=== PATIENT | female | born 1975 | race Caucasian/White ===

== ENCOUNTER 2022-12-15 13:50 | Inpatient (IN) | payer BC, SELFPAY ==
[2022-12-15 13:57] VITALS: BP 95/65; PULSE 112; RESP 18; TEMP 36.2; O2SAT 100
[2022-12-15 14:50] LABS: Absolute Lymphocyte Count 2.16 X10^3/uL (0.83-4.51); Absolute Neutrophil Count 9.2 X10^3/uL (2.0-7.7); Basophil# 0.08 X10^3/uL; Basophil% 0.6 % (0-1); Eosinophil# 0.04 X10^3/uL; Eosinophils% 0.3 % (0-5); Hematocrit 44.9 % (37-47); Lymphocyte # 2.16 X10^3/ul (0.83-4.51); Lymphocyte % 17.5 % (19-41); Mean Corp Hgb Conc 33.4 g/dL (32-36); Mean Corpuscular Hgb 30.9 pg (27.0-32.0); Mean Corpuscular Volume 92.6 fL (81-99); Mean Platelet Vol. 11.4 fl (6.2-12.0); Monocyte# 0.79 X10^3/uL; Monocyte% 6.4 % (0-10); NRBC Flagged by Analyzer 0 % (0-5); Neutrophil # 9.18 X10^3/uL (2.7-7.7); Neutrophil % 74.3 % (47-70); Platelet Count 368 K/mm3 (150-450); RBC Distribution Width CV 14.7 % (11.6-14.6); Red Blood Count 4.85 M/mm3 (4.2-5.4); White Blood Count 12.4 K/mm3 (4.4-11.0)
[2022-12-15 14:57] LABS: Internal QC Validated? YES +Cl - CLEAR BKGD; Pregnancy, Serum, hCG Quali. NEGATIVE Negative
[2022-12-15 15:02] LABS: ALB/GLOB Ratio 0.8 RATIO (0.9-2.4); AST(SGOT) 69 U/L (15-37); Alanine Aminotransfer ALT/SGPT 139 U/L (13-56); Albumin, Serum 3.2 g/dL (3.2-5.0); Alkaline Phosphatase 137 U/L (45-117); Anion Gap 9 (5-15); BUN 13 mg/dL (7-18); Calcium,Total 9.4 mg/dL (8.5-10.1); Chloride 105 mmol/L (98-107); Creatinine, Serum 0.86 mg/dL (0.55-1.02); EST Glomerular Filtration Rate 75 mL/min (>60); Est Glom Filt Rate - Afr Amer 90 mL/min (>60); Globulin 4.2 g/dL (2.2-4.2); Glucose 136 mg/dL (74-106); Potassium 4.9 mmol/L (3.5-5.1); Protein, Total 7.4 g/dL (6.4-8.2); Sodium Level 134 mmol/L (136-145)
--- NOTE | 2022-12-15 15:10 | EKG12_ITS ---
Test Reason : NAUSEA Blood Pressure : / mmHG Vent. Rate : 107 BPM Atrial Rate : 107 BPM P-R Int : 138 ms QRS Dur : 080 ms QT Int : 320 ms P-R-T Axes : 028 -31 028 degrees QTc Int : 427 ms Sinus tachycardia Left axis deviation Minimal voltage criteria for LVH, may be normal variant ( R in aVL ) Cannot rule out Anterior infarct , age undetermined Abnormal ECG Confirmed by ANTONIO PAL, RAYMUNDO ([id number]), photography editor AIDE GONZALEZ ([id number]) on 12/21/2022 2:06:13 PM Referred By: Confirmed By:RAYMUNDO ALVAREZ MD
--- NOTE | 2022-12-15 15:11 | US_ITS ---
STUDY: ABDOMINAL ULTRASOUND - RIGHT UPPER QUADRANT REASON FOR VISIT: Female, 47 years old vomiting, elevated LFTs TECHNIQUE: Ultrasound evaluation of the right upper quadrant was performed with real-time and static ribera-scale imaging. TECHNICAL QUALITY: Limited. Examination limited by bowel gas. COMPARISON: None. FINDINGS: Liver: The liver measures 15.3 cm. There is increased echogenicity consistent with fatty infiltration. The bile ducts are within normal limits. There is hepatic color flow. The direction of portal flow is hepatopetal. Within the right liver lobe there is a round anechoic structure measuring 3.7 x 2.8 x 2.1 cm consistent with a liver cyst. Gallbladder: Normal distended gallbladder. The gallbladder wall measures 4.0 mm. There is a negative sonographic Weaver''s sign. There is no pericholecystic fluid. There are multiple echogenic structures within the gallbladder, consistent with multiple gallstones. Multiple echogenic structures along the wall of the gallbladder suggestive of adenomyomatosis. Common Bile Duct (C.B.D.): The common bile duct measures 4.0 mm. Pancreas: Partial obscuration of the head and tail of the pancreas. Otherwise normal size of the visualized head, body and tail of the pancreas. There is normal echogenicity of the visualized pancreas. There is no demonstrated pancreatic mass or cyst in the visualized portion. Right Kidney: Normal size of the right kidney. The right kidney measures 10.7 x 4.9 x 5.1 cm. Normal renal cortex. The right cortex measures 1.6 cm. There is no demonstrated renal mass or cyst. There is no right hydronephrosis. US/Gallbladder IMPRESSION: Multiple gallstones with underlying adenomyomatosis through the gallbladder wall. Thickening of gallbladder wall up to 4 mm. Although Weaver sign is negative, cannot entirely exclude acute cholecystitis. If this represents a clinical concern, recommend follow-up with HIDA scan. Right liver lobe simple cyst measuring 3.8 cm in maximum dimension. Remainder of the right upper quadrant ultrasound unremarkable. Electronically Signed: Shayy Burns MD at 16:44 EDT ,
--- NOTE | 2022-12-15 15:18 | EX.ED.DYSGE1 ---
HPI History of Present Illness Chief Complaint: Nausea/Vomiting Informant: patient Onset/Context/Timing Onset: Weeks Narrative Narrative: Patient presents secondary to nausea and vomiting. Patient was admitted to [facility] in [place] December 07 through for dizziness, syncope, nausea and vomiting. She had a right upper quadrant ultrasound, HIDA scan, CT scan of her abdomen and pelvis which indicated probable chronic cholecystitis. Her LFTs were reportedly elevated. Per their documentation she got better with Reglan, Protonix, and Carafate. She was discharged on these medications but in spite of this has developed nausea and vomiting again and states she cannot even keep this medications down. Denies having fever or chills. She does not have abdominal pain, just nausea. She states that she is only urinating 3 times a day. She is not having any bloody stool. [facility] Medical History (Updated 12/15/22 @ 19:[address] Erasmo Avitia MD) Arthritis Depression Insomnia Restless leg syndrome Allergy/AdvReac Type Severity Reaction Status Date / Time acetaminophen [From Vicodin] Allergy Nausea Verified 12/15/22 13:57 hydrocodone [From Vicodin] Allergy Nausea Verified 12/15/22 13:57 Social History Smoking Status: Never smoker ROS ROS ED Constitutional Constitutional ED: Denies chills or fever(s) Eyes Eyes: Denies discharge from eye(s) ENT ENT ED: Denies discharge from eye(s), rhinorrhea or sore throat Cardiovascular Cardiovascular: Denies chest pain or palpitations Respiratory/Chest Respiratory/Chest: Denies cough or dyspnea Gastrointestinal Gastrointestinal: Reports diarrhea, nausea and vomiting; Denies abdominal pain Genitourinary Genitourinary ED: Denies dysuria Musculoskeletal Musculoskeletal: Denies back pain or extremity pain Integumentary Denies Abrasions or rash Neurologic Neurologic: Reports weakness; Denies headache(s) Psychiatric Psychiatric: Denies anxiety or depression Allergic/Immunologic Allergic/Immunologic ED: Denies lip swelling or urticaria EXAM Physical Exam Const Vital Signs: 12/15/22 13:57 12/15/22 16:00 Temperature 97.1 F L Temperature Source Temporal Pulse Rate 112 H 103 H Respiratory Rate 18 14 Blood Pressure 95/65 138/76 H Blood Pressure Mean 75 96 Pulse Ox 100 100 Oxygen Delivery Method Room Air Room Air Positive well nourished and well developed General Appearance ED: well developed HEENT Reports normocephalic and head/scalp atraumatic Eyes PERRL and EOMs intact bilaterally Neck supple Chest Wall inspection of chest normal and palpation of chest normal Resp normal respiratory effort and clear to auscultation bilaterally Cardio regular rate and regular rhythm GI non-tender Auscultation: hypoactive bowel sounds Palpation: soft Extremity normal to inspection Neuro oriented x3 Sensorium / Orientation: alert Psych Psych Narrative: Flat affect Skin no rashes or lesions noted MDM MDM MDM Narrative Medical decision making narrative: Patient placed on cardiac rehab nurse. IV fluids initiated. Patient given Reglan and Benadryl. I did review the patient's records from her recent admission at [place]. Labwork obtained to evaluate for leukocytosis, anemia, and electrolyte derangement. Upper quadrant ultrasound obtained to evaluate for any changes to the gallbladder. History & Record Review Discussion w/independent historian: Patient and Family Lab Data Attestation: I reviewed the patient's lab results. Labs: Laboratory Results - last 24 hr 12/15/22 14:35 WBC 12.4 H RBC 4.85 Hgb 15.0 Hct 44.9 MCV 92.6 MCH 30.9 MCHC 33.4 RDW Std Deviation 50.0 H RDW Coeff of Odalys 14.7 H Plt Count 368 MPV 11.4 Immature Gran % (Auto) 0.900 Neut % (Auto) 74.3 H Lymph % (Auto) 17.5 L [place] % (Auto) 6.4 Eos % (Auto) 0.3 Baso % (Auto) 0.6 Absolute Neuts (auto) 9.2 H Absolute Lymphs (auto) 2.16 Nucleated RBC % 0 Sodium 134 L Potassium 4.9 Chloride 105 Carbon Dioxide 20.0 L Anion Gap 9 BUN 13 Creatinine 0.86 Est GFR (MDRD) Af Amer 90 Est GFR (MDRD) Non-Af 75 BUN/Creatinine Ratio 15.0 Glucose 136 H Calcium 9.4 Total Bilirubin 0.70 AST 69 H ALT 139 H Alkaline Phosphatase 137 H Total Protein 7.4 Albumin 3.2 Globulin 4.2 Albumin/Globulin Ratio 0.8 L Serum , Qual NEGATIVE Radiography Diagnostic Testing: Clinical Impression(s) from Imaging Studies Gallbladder Ultrasound 12/15/22 15:11 IMPRESSION: Multiple gallstones with underlying adenomyomatosis through the gallbladder wall. Thickening of gallbladder wall up to 4 mm. Although Weaver sign is negative, cannot entirely exclude acute cholecystitis. If this represents a clinical concern, recommend follow-up with HIDA scan. Right liver lobe simple cyst measuring 3.8 cm in maximum dimension. Remainder of the right upper quadrant ultrasound unremarkable. Electronically Signed: Shayy Burns MD at 16:44 EDT , Treatment and Re-Evaluation :: CBC was white count of 12.4 with 74% neutrophils. Hemoglobin is normal at 15. Chemistry studies reveal a sodium of 134. Renal function is normal with a BUN of 13 and a creatinine 0.86 at this time. LFTs are elevated with a AST of 69, ALT 139, alk phos 137. test is negative. Right upper quadrant ultrasound reveals multiple gallstones with underlying adenomyomatosis through the gallbladder wall. Thickening of the wall up to 4 mm. Negative Weaver sign noted. I spoke with Dr. Avitia from surgery and reviewed her findings today along with the findings from her previous ultrasound, HIDA scan, and CT scan. He does not feel patient needs emergent gallbladder surgery. He did recommend an abdominal x-ray to look at bowel gas pattern given her vomiting and unable to tolerate p.o. This was obtained and per my interpretation reveals some stool noted on the ascending colon with no evidence of bowel obstruction. At this time patient still able to tolerate p.o. I will speak with hospitalist regarding admission. Discharge Plan Triage Chief Complaint: Nausea/Vomiting ED Provider: Tatianna Stein Dx/Rx/DC Orders Clinical Impression: Elevated LFTs, Weakness, Vomiting Primary Care Provider: Rissa Brasher Referrals: Rissa Brasher, DO [Primary Care Provider] - Disposition Disposition: Acute Care Hospital [facility]
[2022-12-15] MEDS: DiphenhydrAMINE 50 MG/ML Syringe 12.5 MG IV (15:24)
[2022-12-15] MEDS: Metoclopramide 10 MG/2 ML Vial IV (15:24)
[2022-12-15] MEDS: 0.9% Normal Saline (1000mL) 1,000 ML 1000 ML IV (15:24)
[2022-12-15 16:00] VITALS: BP 138/76; PULSE 103; RESP 14; O2SAT 100
--- NOTE | 2022-12-15 19:09 | CON.PCM.SX_ITS ---
Assessment & Plan Assessment/Plan (1) Thickening of wall of gallbladder: (2) Abnormal liver function tests: PLAN: Plan This is a 47-year-old female who presents with intractable nausea and vomiting?alongside of complaints of profound weakness and significant anorexia. Extensive work-up has been undertaken for patient's gallbladder which largely reveals evidence of chronic cholecystitis. I do not elicit any discomfort during my exam today. Therefore, I find it unlikely that patient's gallbladder inflammation is the cause of her GI complaints and recommend re-broadening the differential. With her normal ductal dimensions on ultrasound and normal exam, I would question whether her abnormal liver function testing is more product of nonalcoholic steatohepatitis. She does report that she is having regular bowel movements which would seem to largely exclude a obstructive process, but still a CT of the abdomen pelvis with oral contrast may be beneficial. Additionally, given patient's significant neurologic complaints, I would question whether or not she requires an evaluation of her essential vitamin levels. Again, I am unable to explain her presentation by cholecystitis and therefore no surgical intervention is planned. Still patient may require admission to the hospital on account of failure to thrive with inability to tolerate p.o. and ambulate safely. HPI Consult Data Date of Consult: 12/15/22 HPI Narrative Reason for Consultation: Intractable nausea and vomiting with possible connection to gallbladder HPI Narrative: WIL CAMPBELL, is a 47 F who presents to [facility] at the prompting of her children and boyfriend after she has been unable to eat or drink following a discharge from Located within [facility] 3 days ago. There, she states she underwent CT imaging of her abdomen pelvis, gallbladder ultrasound, HIDA imaging, and even MRI of her brain for her complaints of nausea, vomiting, weig ht loss, dizziness, and profound weakness. She reports that her CT imaging of the abdomen pelvis was relatively unremarkable and that her HIDA imaging was normal?leading surgery to conclude, there, that she likely had chronic cholecystitis but this was not the cause of her other symptoms. She reports that she was able to tolerate some p.o. intake and was discharged. However, since arriving home things became significantly worse to the point that she cannot even keep water down at this point. She also states that she cannot ambulate to the bathroom without feeling like her legs are giving out. Beyond the above, patient reports that she had her remaining teeth pulled in September (she states that she suffers from a calcium deficiency and this led to bad teeth), but when she was fitted for dentures the dentures fit improperly. Therefore, she has been restricted to a liquid diet since that time and she states that her appetite went downhill resulting in approximately 70 pound weight loss (patient states that she weighed in at 305 pounds before all of this began). She was told somewhere along the lines of her work-up that she may have a problem with her inner ear canals and this may be the contributing source of her imbalance issues. She also acknowledges a psychiatric history with anxiety and depression, but reports that she is medicated and is only missed 1 dose of her medication. [facility] Medical History (Updated 12/15/22 @ 19:[address] Erasmo Avitia MD) Arthritis Depression Insomnia Restless leg syndrome Allergy/AdvReac Type Severity Reaction Status Date / Time acetaminophen [From Vicodin] Allergy Nausea Verified 12/15/22 13:57 hydrocodone [From Vicodin] Allergy Nausea Verified 12/15/22 13:57 Social History Smoking Status: Never smoker ROS Constitutional Constitutional: Reports anorexia and weight loss Gastrointestinal Gastrointestinal: Reports nausea and vomiting; Denies abdominal pain, diarrhea, hematochezia or melena Musculoskeletal Musculoskeletal: Reports abnormal gait, difficulty walking and muscle weakness Physical Exam Const Constitutional Narrative: Flat affect Nutritional Appearance: obese Resp normal respiratory effort GI GI Narrative: Morbidly obese, striae present, no scars, nondistended, soft, nontender to palpation?negative Weaver sign Lab / Micro Data 12/15/22 14:35 12/15/22 14:35 Labs: Laboratory Results - last 24 hr 12/15/22 14:35: WBC 12.4 H, RBC 4.85, Hgb 15.0, Hct 44.9, MCV 92.6, MCH 30.9, MCHC 33.4, RDW Std Deviation 50.0 H, RDW Coeff of Odalys 14.7 H, Plt Count 368, MPV 11.4, Immature Gran % (Auto) 0.900, Neut % (Auto) 74.3 H, Lymph % (Auto) 17.5 L, [place] % (Auto) 6.4, Eos % (Auto) 0.3, Baso % (Auto) 0.6, Absolute Neuts (auto) 9.2 H, Absolute Lymphs (auto) 2.16, Nucleated RBC % 0, Sodium 134 L, Potassium 4.9, Chloride 105, Carbon Dioxide 20.0 L, Anion Gap 9, BUN 13, Creatinine 0.86, Est GFR (MDRD) Af Amer 90, Est GFR (MDRD) Non-Af 75, BUN/Creatinine Ratio 15.0, Glucose 136 H, Calcium 9.4, Total Bilirubin 0.70, AST 69 H, ALT 139 H, Alkaline Phosphatase 137 H, Total Protein 7.4, Albumin 3.2, Globulin 4.2, Albumin/Globulin Ratio 0.8 L, Serum , Qual NEGATIVE Radiology Impression Gallbladder Ultrasound 12/15/22 15:11 IMPRESSION: Multiple gallstones with underlying adenomyomatosis through the gallbladder wall. Thickening of gallbladder wall up to 4 mm. Although Weaver sign is negative, cannot entirely exclude acute cholecystitis. If this represents a clinical concern, recommend follow-up with HIDA scan. Right liver lobe simple cyst measuring 3.8 cm in maximum dimension. Remainder of the right upper quadrant ultrasound unremarkable. Electronically Signed: Shayy Burns MD at 16:44 EDT , Charges/Coding Visit Charges Inpatient E&M: 93750 Init Hosp L2
--- NOTE | 2022-12-15 19:25 | RAD_ITS ---
STUDY: X-RAY - ABDOMEN/PELVIS REASON FOR EXAM: Female, 47 years old. vomiting TECHNIQUE: Single AP view of the abdomen / pelvis. COMPARISON: None. FINDINGS: Normal visualized lung bases. Moderate fecal debris within the colon. Otherwise there is an unremarkable bowel gas pattern with nonspecific mild gaseous distention of the transverse colon. There is no demonstrated free abdominal air. The visualized liver, spleen and kidneys are grossly normal in size and morphology. There are calcified phleboliths in the pelvis. Normal visualized osseous structures. RAD/Abdomen Single View IMPRESSION: Moderate fecal debris within the colon. Otherwise nonspecific gas pattern with no signs of obstruction or free air. Electronically Signed: Shayy Burns MD at 19:42 EDT ,
--- NOTE | 2022-12-15 19:49 | PCM.HP.STD ---
[facility] - General General Date of Admission: 12/15/22 Date of Service: 12/15/22 Chief Complaint: Nausea and vomiting. HPI Megan CAMPBELL, is a 47 F with a significant history of anxiety disorder; depression; insomnia and restless leg syndrome who presents emergency department with 3 weeks history of progressively worsening nausea and vomiting. Patient denies abdominal pain. Of note patient went to [facility] on December 07 because of syncope and vomiting. She was discharged on December 12. CT of abdomen and pelvis, ultrasound gallbladder and HIDA scan was done at [facility]. Imaging at [facility] showed gallstones and delayed emptying of the gallbladder consistent with chronic cholecystitis. Patient was discharged home on Reglan and Carafate and Protonix p.o.. However even though she is taking these medicine at home she still did not have relief from her nausea and vomiting. Indeed her symptoms has progressed from where she cannot tolerate food to now where she cannot tolerate food and drink. At [facility] patient was also treated for UTI. Further, she was given electrolyte supplementation of potassium and magnesium. There was plan to do an EGD but that was not carried through. On presentation to ED patient was seen by general surgery who is willing to follow inpatient. [facility] Medical History Arthritis Depression Insomnia Restless leg syndrome Home Medications L norgest/E estradiol-E estrad 0.15 mg-30 mcg (84)/10 mcg(7) tabs,3mos (Jaimiess) 1 tab PO Q24H 12/15/22 [History Last Taken 12/15/22] bupropion HCl 300 mg 24 hr tablet, extended release 300 mg PO DAILY 12/15/22 [History Last Taken Unknown] meclizine 25 mg tablet 25 mg PO TID 12/15/22 [History Last Taken Unknown] metoclopramide HCl 5 mg tablet 5 mg PO BID 12/15/22 [History Last Taken Unknown] pantoprazole 40 mg tablet,delayed release 40 mg PO BID 12/15/22 [History Last Taken Unknown] potassium chloride 20 mEq tablet,extended release(part/cryst) 40 meq PO DAILY 12/15/22 [History Last Taken Unknown] sucralfate 1 gram tablet 1 g PO 4X/DAY 12/15/22 [History Last Taken Unknown] trazodone 50 mg tablet 50 mg PO QHS PRN 12/15/22 [History Last Taken Unknown] vilazodone 10 mg tablet 10 mg PO DAILY 12/15/22 [History Last Taken 12/15/22] Allergy/AdvReac Type Severity Reaction Status Date / Time acetaminophen [From Vicodin] Allergy Nausea Verified 12/15/22 13:57 hydrocodone [From Vicodin] Allergy Nausea Verified 12/15/22 13:57 Family History Other COPD (chronic obstructive pulmonary disease) Diabetes Hypertension Surgical History History of tooth extraction Social History Smoking Status: Never smoker ROS ROS Narrative Pertinent positives and pertinent negatives as noted in HPI. All other systems were reviewed and are negative Vital Signs Vital Signs Vital Signs: 12/15/22 13:57 12/15/22 16:00 Temperature 97.1 F L Temperature Source Temporal Pulse Rate 112 H 103 H Respiratory Rate 18 14 Blood Pressure 95/65 138/76 H Blood Pressure Mean 75 96 Pulse Ox 100 100 Oxygen Delivery Method Room Air Room Air Physical Exam Narrative Physical exam: General: Well-nourished, well-developed. Head: Normocephalic, atraumatic, no tenderness Eyes: Vision is grossly intact. EOMI ENT, no trauma, moist mucous membranes, no rhinorrhea Neck: Nontender, No thyromegaly. CVS: Regular rate and rhythm. S1-S2 present. No murmur, gallop or rub. Respiratory : clear to auscultation bilaterally, chest wall nontender Abdomen: Soft, nontender, nondistended, normal bowel sounds, no masses : Deferred Back: Nontender, no CVA tenderness, no midline spinal tenderness, deformities, step-offs Extremities: Nontender full range of motion, no trauma Skin: Normal color, no trauma, abrasions Neuro: Alert, oriented, cranial nerves II through XII grossly intact. Psychiatry: Normal mood. Normal affect. Not depressed. Not anxious. Results Lab / Micro Data 12/15/22 14:35 12/15/22 14:35 Labs: Laboratory Results - last 24 hr 12/15/22 14:35: WBC 12.4 H, RBC 4.85, Hgb 15.0, Hct 44.9, MCV 92.6, MCH 30.9, MCHC 33.4, RDW Std Deviation 50.0 H, RDW Coeff of Odalys 14.7 H, Plt Count 368, MPV 11.4, Immature Gran % (Auto) 0.900, Neut % (Auto) 74.3 H, Lymph % (Auto) 17.5 L, [place] % (Auto) 6.4, Eos % (Auto) 0.3, Baso % (Auto) 0.6, Absolute Neuts (auto) 9.2 H, Absolute Lymphs (auto) 2.16, Nucleated RBC % 0, Sodium 134 L, Potassium 4.9, Chloride 105, Carbon Dioxide 20.0 L, Anion Gap 9, BUN 13, Creatinine 0.86, Est GFR (MDRD) Af Amer 90, Est GFR (MDRD) Non-Af 75, BUN/Creatinine Ratio 15.0, Glucose 136 H, Calcium 9.4, Total Bilirubin 0.70, AST 69 H, ALT 139 H, Alkaline Phosphatase 137 H, Total Protein 7.4, Albumin 3.2, Globulin 4.2, Albumin/Globulin Ratio 0.8 L, Serum , Qual NEGATIVE Radiology Impression Gallbladder Ultrasound 12/15/22 15:11 IMPRESSION: Multiple gallstones with underlying adenomyomatosis through the gallbladder wall. Thickening of gallbladder wall up to 4 mm. Although Weaver sign is negative, cannot entirely exclude acute cholecystitis. If this represents a clinical concern, recommend follow-up with HIDA scan. Right liver lobe simple cyst measuring 3.8 cm in maximum dimension. Remainder of the right upper quadrant ultrasound unremarkable. Electronically Signed: Shayy Burns MD at 16:44 EDT , Assessment & Plan Assessment/Plan (1) Intractable nausea and vomiting: (2) Abnormal liver function tests: PLAN: Plan Intractable nausea and vomiting with abnormal liver function tests/thickened gallbladder wall Etiology unclear Supportive treatment with IV fluids, as needed Zofran IV and as needed Compazine IV. Protonix 40 mg IV twice daily ordered. General surgery consult. NPO. DVT Prophylaxis: SCDs ordered. Time spent in the patient's overall evaluation,decision-making process, review of diagnostic data, adjustment of management, discussion with other providers, nursing nursing and ancillary staff involved in patient's care documentation, 45 minutes . Charges/Coding Visit Charges Inpatient E&M: 41393 Init Hosp L2
[2022-12-15 19:57] VITALS: BP 131/84; PULSE 109; RESP 19; O2SAT 99
[2022-12-15 20:07] VITALS: BMI 38.6
[2022-12-15] MEDS: 0.9% Normal Saline (1000mL) 1,000 ML 150 ML IV (20:07)
[2022-12-15 21:00] VITALS: BP 151/94; PULSE 103; RESP 16; TEMP 36.6; O2SAT 99
[2022-12-15 21:04] VITALS: BMI 37.2
[2022-12-15] MEDS: Pantoprazole Sodium 40 MG in 0.9% Normal Saline (100mL MB+) 100 ML 330 MG IV (21:38)
[2022-12-15] MEDS: 0.9% Normal Saline (1000mL) 1,000 ML 100 ML IV (21:38)
[2022-12-16] VITALS (8 sets, daily range): BP systolic 124–170; BP diastolic 84–100; PULSE 95–107; RESP 12–16; TEMP 36.6–36.8; O2SAT 94–99
[2022-12-16] MEDS: Orphenadrine 60 MG/2 ML Ampul IM (01:38)
[2022-12-16] MEDS: 0.9% Normal Saline (1000mL) 1,000 ML 100 ML IV ×2 (01:38→12:07)
[2022-12-16 06:39] LABS: Absolute Lymphocyte Count 2.17 X10^3/uL (0.83-4.51); Absolute Neutrophil Count 8.5 X10^3/uL (2.0-7.7); Basophil# 0.08 X10^3/uL; Basophil% 0.7 % (0-1); Eosinophil# 0.08 X10^3/uL; Eosinophils% 0.7 % (0-5); Hematocrit 38.8 % (37-47); Hemoglobin 12.9 g/dL (12.0-15.0); Lymphocyte # 2.17 X10^3/ul (0.83-4.51); Mean Corp Hgb Conc 33.2 g/dL (32-36); Mean Corpuscular Hgb 31.5 pg (27.0-32.0); Mean Corpuscular Volume 94.6 fL (81-99); Mean Platelet Vol. 10.9 fl (6.2-12.0); Monocyte# 1.14 X10^3/uL; Monocyte% 9.5 % (0-10); NRBC Flagged by Analyzer 0 % (0-5); Neutrophil # 8.45 X10^3/uL (2.7-7.7); Neutrophil % 70.1 % (47-70); Platelet Count 347 K/mm3 (150-450); RBC Distribution Width CV 14.8 % (11.6-14.6); RBC Distribution Width SD 51.5 fl (35.1-43.9)
[2022-12-16 07:18] LABS: ALB/GLOB Ratio 0.7 RATIO (0.9-2.4); AST(SGOT) 58 U/L (15-37); Alanine Aminotransfer ALT/SGPT 124 U/L (13-56); Alkaline Phosphatase 128 U/L (45-117); Anion Gap 8 (5-15); BUN 11 mg/dL (7-18); BUN/Creat Ratio 15.9 RATIO (10-20); Calcium,Total 8.9 mg/dL (8.5-10.1); Chloride 106 mmol/L (98-107); Creatinine, Serum 0.69 mg/dL (0.55-1.02); EST Glomerular Filtration Rate 97 mL/min (>60); Est Glom Filt Rate - Afr Amer 117 mL/min (>60); Estimated Creatinine Clearance 98.02 ml/min; Globulin 4.1 g/dL (2.2-4.2); Glucose 112 mg/dL (74-106); Potassium 3.8 mmol/L (3.5-5.1); Protein, Total 7.1 g/dL (6.4-8.2); Sodium Level 136 mmol/L (136-145)
--- NOTE | 2022-12-16 08:42 | PCM.PN.HOSP ---
Reason for Visit Reason for Visit: Diagnoses Other specified diseases of gallbladder (12/15/22) Nausea with vomiting, unspecified (12/15/22) Other specified abnormal findings of blood chemistry (12/15/22) Subjective Subjective Patient ports she has been having the nausea for 3 weeks and dizziness and tingling in her hands and feet for about a week, has not had upper or lower endoscopies or gastric emptying study and has not yet followed with neuro. Still feeling nauseous, denies any abdominal pain, usually stays constipated, last bowel movement was Wednesday and she usually goes once a week, denies problems with urination. Objective Data Objective Data Vital Signs: Vital Signs Temp Pulse Resp BP Pulse Ox O2 Del Method 97.8 F 98 16 148/89 H 94 Room Air 12/16/22 03:00 12/16/22 03:00 12/16/22 03:00 12/16/22 03:00 12/16/22 07:11 12/16/22 07:11 Oxygen Delivery Method Room Air Weight: 107.8 kg Body Mass Index (BMI) 37.2 Intake & Output: Intake and Output for Last 24 Hours 12/14/22 12/15/22 12/16/22 23:59 23:59 23:59 Intake Total 1337.5 / 1337.5 400 / 400 Balance 1337.5 / 1337.5 400 / 400 Lab / Micro Data 12/16/22 05:54 12/16/22 05:54 Labs: Laboratory Results - last 24 hr 12/15/22 14:35: WBC 12.4 H, RBC 4.85, Hgb 15.0, Hct 44.9, MCV 92.6, MCH 30.9, MCHC 33.4, RDW Std Deviation 50.0 H, RDW Coeff of Odalys 14.7 H, Plt Count 368, MPV 11.4, Immature Gran % (Auto) 0.900, Neut % (Auto) 74.3 H, Lymph % (Auto) 17.5 L, [place] % (Auto) 6.4, Eos % (Auto) 0.3, Baso % (Auto) 0.6, Absolute Neuts (auto) 9.2 H, Absolute Lymphs (auto) 2.16, Nucleated RBC % 0, Sodium 134 L, Potassium 4.9, Chloride 105, Carbon Dioxide 20.0 L, Anion Gap 9, BUN 13, Creatinine 0.86, Est GFR (MDRD) Af Amer 90, Est GFR (MDRD) Non-Af 75, BUN/Creatinine Ratio 15.0, Glucose 136 H, Calcium 9.4, Total Bilirubin 0.70, AST 69 H, ALT 139 H, Alkaline Phosphatase 137 H, Total Protein 7.4, Albumin 3.2, Globulin 4.2, Albumin/Globulin Ratio 0.8 L, Serum , Qual NEGATIVE 12/16/22 05:54: WBC 12.0 H, RBC 4.10 L, Hgb 12.9, Hct 38.8, MCV 94.6, MCH 31.5, MCHC 33.2, RDW Std Deviation 51.5 H, RDW Coeff of Odalys 14.8 H, Plt Count 347, MPV 10.9, Immature Gran % (Auto) 1.000 H, Neut % (Auto) 70.1 H, Lymph % (Auto) 18.0 L, [place] % (Auto) 9.5, Eos % (Auto) 0.7, Baso % (Auto) 0.7, Absolute Neuts (auto) 8.5 H, Absolute Lymphs (auto) 2.17, Nucleated RBC % 0, Sodium 136, Potassium 3.8, Chloride 106, Carbon Dioxide 22.0, Anion Gap 8, BUN 11, Creatinine 0.69, Estim Creat Clear Calc 98.02, Est GFR (MDRD) Af Amer 117, Est GFR (MDRD) Non-Af 97, BUN/Creatinine Ratio 15.9, Glucose 112 H, Calcium 8.9, Total Bilirubin 0.60, AST 58 H, ALT 124 H, Alkaline Phosphatase 128 H, Total Protein 7.1, Albumin 3.0 L, Globulin 4.1, Albumin/Globulin Ratio 0.7 L Radiography Diagnostic Testing: Radiology Impression Gallbladder Ultrasound 12/15/22 15:11 IMPRESSION: Multiple gallstones with underlying adenomyomatosis through the gallbladder wall. Thickening of gallbladder wall up to 4 mm. Although Weaver sign is negative, cannot entirely exclude acute cholecystitis. If this represents a clinical concern, recommend follow-up with HIDA scan. Right liver lobe simple cyst measuring 3.8 cm in maximum dimension. Remainder of the right upper quadrant ultrasound unremarkable. Electronically Signed: Shayy Burns MD at 16:44 EDT , Physical Exam Narrative General: Alert, oriented HEENT: Atraumatic, normocephalic Eyes: Anicteric, normal conjunctiva, extraocular movements grossly intact Neck: Supple Respiratory: Clear to auscultation bilaterally, normal respiratory effort Cardiovascular: Regular rate and rhythm GI: Soft, nontender, nondistended Extremities: No edema Musculoskeletal: Moving all extremities Neuro: No overt focal neurological deficits Skin: No rashes appreciated Psych: Cooperative Assessment & Plan Assessment/Plan (1) Intractable nausea and vomiting: (2) Abnormal liver function tests: PLAN: Plan #Intractable n/v and weight loss -Patient had all of her teeth removed in September as she has some underlying calcium deposition difficulty and her subsequent dentures did not fit so she has been on a liquid diet for several months has lost 60 to 70 pounds and has had problems with intractable nausea and vomiting -Scans have been consistent with chronic cholecystitis without acute cause identified -Patient was started on PPI, Carafate, Reglan at [place] where she was up until Wednesday but is continued to have difficulty eating -Do not see where she has had endoscopies or gastric emptying study and patient confirms she has not had these, given her symptoms and otherwise negative work-up GI consulted -Discussed with surgery, does not seem to have surgical indication for cholecystectomy at this time -We will consult gastroenterology, did CT scan from outlying facility which had thickening in her transverse colon of unclear significance, reportedly was supposed to have endoscopies but did not have these completed, GI consulted -Assessing patient for nutritional deficiencies that may have developed and may be worsening neurologic complications -Symptomatic treatment with Zofran, PPI, IV fluids #Dizziness -Patient had nystagmus and vertigo with multiple maneuvers at [place] consistent with central vertigo -MRI demonstrated scattered white matter hyperintensities with an additional incidentally noted 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 with a small focus of associated susceptibility which may represent previous hemorrhage versus Dx hemoglobin within the structure -Overall concerning for demyelinating process and will be imperative that she follows up with neurology -We will also check for underlying nutritional deficiencies and other underlying abnormalities that may cause or contribute to neurologic complaints #gallbladder wall thickening/abn LFTs -Likely chronic cholecystitis, no acute surgical indication -Lytes had multiple abdominal ultrasounds, shannon Mckeon, abdominal CT scans -Discussed with surgery service -Hepatitis panel, CMV and EBV, HIV #DVT ppx: Lovenox Pau Kumari MD Time spent in the patient's overall evaluation,decision-making process, review of diagnostic data, adjustment of management, discussion with other providers, nursing nursing and ancillary staff involved in patient's care documentation,52 Minutes Charges/Coding Visit Charges Inpatient E&M: 39958 Subs Hosp L3
--- NOTE | 2022-12-16 09:30 | PCM.PN.SRG ---
Subjective Subjective Patient seen and examined during AM rounds. She is found resting in bed. She denies any significant oral intake but does state that she remains nauseous. He denies any abdominal pain. Objective Data Objective Data Vital Signs: Vital Signs Temp Pulse Resp BP Pulse Ox O2 Del Method 97.8 F 98 16 148/89 H 94 Room Air 12/16/22 03:00 12/16/22 03:00 12/16/22 03:00 12/16/22 03:00 12/16/22 07:11 12/16/22 07:11 Oxygen Delivery Method Room Air Weight: 237 lb 10.533 oz Body Mass Index (BMI) 37.2 Intake & Output: Intake and Output for Last 24 Hours 12/14/22 12/15/22 12/16/22 23:59 23:59 23:59 Intake Total 1337.5 / 1337.5 400 / 400 Balance 1337.5 / 1337.5 400 / 400 Lab / Micro Data 12/16/22 05:54 12/16/22 05:54 Labs: Laboratory Results - last 24 hr 12/15/22 14:35: WBC 12.4 H, RBC 4.85, Hgb 15.0, Hct 44.9, MCV 92.6, MCH 30.9, MCHC 33.4, RDW Std Deviation 50.0 H, RDW Coeff of Odalys 14.7 H, Plt Count 368, MPV 11.4, Immature Gran % (Auto) 0.900, Neut % (Auto) 74.3 H, Lymph % (Auto) 17.5 L, [place] % (Auto) 6.4, Eos % (Auto) 0.3, Baso % (Auto) 0.6, Absolute Neuts (auto) 9.2 H, Absolute Lymphs (auto) 2.16, Nucleated RBC % 0, Sodium 134 L, Potassium 4.9, Chloride 105, Carbon Dioxide 20.0 L, Anion Gap 9, BUN 13, Creatinine 0.86, Est GFR (MDRD) Af Amer 90, Est GFR (MDRD) Non-Af 75, BUN/Creatinine Ratio 15.0, Glucose 136 H, Calcium 9.4, Total Bilirubin 0.70, AST 69 H, ALT 139 H, Alkaline Phosphatase 137 H, Total Protein 7.4, Albumin 3.2, Globulin 4.2, Albumin/Globulin Ratio 0.8 L, Serum , Qual NEGATIVE 12/16/22 05:54: WBC 12.0 H, RBC 4.10 L, Hgb 12.9, Hct 38.8, MCV 94.6, MCH 31.5, MCHC 33.2, RDW Std Deviation 51.5 H, RDW Coeff of Odalys 14.8 H, Plt Count 347, MPV 10.9, Immature Gran % (Auto) 1.000 H, Neut % (Auto) 70.1 H, Lymph % (Auto) 18.0 L, [place] % (Auto) 9.5, Eos % (Auto) 0.7, Baso % (Auto) 0.7, Absolute Neuts (auto) 8.5 H, Absolute Lymphs (auto) 2.17, Nucleated RBC % 0, Sodium 136, Potassium 3.8, Chloride 106, Carbon Dioxide 22.0, Anion Gap 8, BUN 11, Creatinine 0.69, Estim Creat Clear Calc 98.02, Est GFR (MDRD) Af Amer 117, Est GFR (MDRD) Non-Af 97, BUN/Creatinine Ratio 15.9, Glucose 112 H, Calcium 8.9, Total Bilirubin 0.60, AST 58 H, ALT 124 H, Alkaline Phosphatase 128 H, Total Protein 7.1, Albumin 3.0 L, Globulin 4.1, Albumin/Globulin Ratio 0.7 L Radiography Diagnostic Testing: Radiology Impression Gallbladder Ultrasound 12/15/22 15:11 IMPRESSION: Multiple gallstones with underlying adenomyomatosis through the gallbladder wall. Thickening of gallbladder wall up to 4 mm. Although Weaver sign is negative, cannot entirely exclude acute cholecystitis. If this represents a clinical concern, recommend follow-up with HIDA scan. Right liver lobe simple cyst measuring 3.8 cm in maximum dimension. Remainder of the right upper quadrant ultrasound unremarkable. Electronically Signed: Shayy Burns MD at 16:44 EDT , Physical Exam Const oriented x3 and no apparent distress Constitutional Narrative: Continued flatter affect Resp normal respiratory effort GI GI Narrative: Nondistended, no scars, soft, nontender to palpation, negative Weaver sign Assessment & Plan Assessment/Plan (1) Thickening of wall of gallbladder: (2) Abnormal liver function tests: PLAN: Plan This is a 47-year-old female who presents with intractable nausea and vomiting?alongside of complaints of profound weakness and significant anorexia. Extensive work-up has been undertaken for patient's gallbladder which largely reveals evidence of chronic cholecystitis. Once again, today I do not elicit any discomfort during my exam. Therefore, I remain unconvinced that patient's gallbladder inflammation is the cause of her GI complaints and recommend re-broadening the differential. Concerns and clinical impressions were relayed to Dr. Kumari of the hospitalist service this morning via phone. No surgical intervention planned at this time. Charges/Coding Visit Charges Inpatient E&M: 59593 Subs Hosp L2
[2022-12-16 09:58] LABS: Erythrocyte Sedimentation Rate 46 mm/hr (0-30)
[2022-12-16 10:12] LABS: Homocysteine 9.2 umol/L (3.2-10.7)
[2022-12-16] MEDS: Enoxaparin 40 MG/0.4 ML Syringe SC (10:12)
[2022-12-16] MEDS: Pantoprazole Sodium 40 MG in 0.9% Normal Saline (100mL MB+) 100 ML 330 MG IV ×2 (10:13→20:36)
[2022-12-16 10:14] LABS: Magnesium 2.1 mg/dL (1.6-2.6); Phosphorus 2.9 mg/dL (2.5-4.9); Prealbumin 18.8 mg/dL (20.0-40.0)
[2022-12-16 10:35] LABS: HIV - WCH Non-Reactive (Nonreactive); Syphilis Antibodies Non-reactive; Vitamin B12 523 pg/mL (211-911); Vitamin D,25 Hydroxy 11.2 ng/mL
--- NOTE | 2022-12-16 11:15 | CASEMGMT ---
RN COURT Face to Face with patient for initial transition planning/care coordination assessment. RN CM introduced self and role at [facility]. Patient lying in bed, alert and oriented. Patient willing to participate in assessment and is able to answer all questions appropriately. Care providers, pharmacy, and demographics verified. Patient wishes to discharge home, will monitor for HHC. Patient states she has no further needs or concerns at this time. CM to follow for discharge planning needs that may arise. PCP: Sameera Specialists: none Preferred Pharmacy: [facility] Insurance: [place] Prescription Benefit: yes Living Will/HPOA: none LNOK: daughter, boyfriend Living Arrangements: Patient lives with boyfriend in a 2 story home with first floor setup as she is sleeping on the couch. Patient states that her children and boyfriend have been assisting her with her ADLs. Transportation: boyfriend DME/HHC: Patient has shower chair and walker at home. No previous HHC of SNF Disposition Plan: Patient to discharge home with family support and follow-up plans in place. Tiffanie PRYOR, RN, CM
--- NOTE | 2022-12-16 11:57 | MRI_ITS ---
INDICATION: cholestatic hepatitis EXAMINATION: MRI - MR MRCP W/O Contrast TECHNIQUE: Multiplanar and multisequence MR images of the abdomen were obtained with MRCP sequence. Three-dimensional post-processing reconstructions were performed. IV Contrast Dosage and Agent: None. COMPARISON: Prior study dated: Ultrasound 12/15/2022 FINDINGS: LIVER: Normal size and shape. Normal signal. In segment 8 of the liver there is a bilobed 4.2 cm cyst. GALLBLADDER AND BILIARY TREE: Multiple small stones are seen in the gallbladder lumen. No gallbladder distension or wall edema. The CBD measures 0.4 cm. No intra- or extrahepatic biliary dilation. No choledochal filling defect. PANCREAS: No mass. No pancreatic duct dilation. SPLEEN: Non-enlarged. ADRENAL GLANDS: No nodules. KIDNEYS: Normal renal size and position. No hydronephrosis. No mass. LYMPH NODES: No enlarged periportal or retroperitoneal lymph nodes. PERITONEUM: No ascites or fluid collection. VESSELS: Aorta is non-dilated. LOWER CHEST: No pleural effusion. Subtle atelectasis at the posterior right base. MRI/MRCP Abdomen without Contrast IMPRESSION: No biliary ductal dilatation or choledocholithiasis. Cholelithiasis without inflammatory appearance of the gallbladder. Electronically Signed: Nikita Peña MD at 16:16 EDT ,
[2022-12-16] MEDS: LORazepam 2 MG/ML Syringe 1 MG IV (14:24)
[2022-12-16] MEDS: 0.9% Saline Lock 10 ML Syringe IV ×3 (14:24→18:06)
--- NOTE | 2022-12-16 16:25 | CON.PCM.GI_ITS ---
HPI Consult Data Date of Consult: 12/16/22 HPI Narrative HPI Narrative: WIL CAMPBELL, is a 47 F who presents secondary to nausea and vomiting. Patient was admitted to [facility] in [place] December 07 through for dizziness, syncope, nausea and vomiting. She had a right upper quadrant ultrasound, HIDA scan, CT scan of her abdomen and pelvis which indicated probable chronic cholecystitis. Her LFTs were reportedly elevated. Per their documentation she got better with Reglan, Protonix, and Carafate. She was discharged on these medications but in spite of this has developed nausea and vomiting again and states she cannot even keep this medications down. She denies having fever or chills. She does not have abdominal pain, just nausea. She states that she is only urinating 3 times a day. She is not having any bloody stool. Her blood work is consistent with a cholestatic hepatitis. She does not drink any alcohol. She has not started any new medicines. Unfortunately she has lost about 70 pounds since getting her teeth removed. Her current dentures are too small for her to be able to eat on a daily basis. She had a CT scan of the abdomen pelvis: Multiple gallstones with underlying adenomyomatosis through the gallbladder wall. Thickening of gallbladder wall up to 4 mm. Although Weaver sign is negative, cannot entirely exclude acute cholecystitis. If this represents a clinical concern, recommend follow-up with HIDA scan. Right liver lobe simple cyst measuring 3.8 cm in maximum dimension. Remainder of the right upper quadrant ultrasound unremarkable. She also had an MRCP: No biliary ductal dilatation or choledocholithiasis. Cholelithiasis without inflammatory appearance of the gallbladder. [facility] Medical History Arthritis Depression Insomnia Restless leg syndrome Home Medications L norgest/E estradiol-E estrad 0.15 mg-30 mcg (84)/10 mcg(7) tabs,3mos (Jaimiess) 1 tab PO Q24H 12/15/22 [History Last Taken 12/15/22] bupropion HCl 300 mg 24 hr tablet, extended release 300 mg PO DAILY 12/15/22 [History Last Taken Unknown] meclizine 25 mg tablet 25 mg PO TID 12/15/22 [History Last Taken Unknown] metoclopramide HCl 5 mg tablet 5 mg PO BID 10/10/23 [History Last Taken Unknown] pantoprazole 40 mg tablet,delayed release 40 mg PO BID 12/15/22 [History Last Taken Unknown] potassium chloride 20 mEq tablet,extended release(part/cryst) 40 meq PO DAILY 12/15/22 [History Last Taken Unknown] sucralfate 1 gram tablet 1 g PO 4X/DAY 12/15/22 [History Last Taken Unknown] trazodone 50 mg tablet 50 mg PO QHS PRN 12/15/22 [History Last Taken Unknown] vilazodone 10 mg tablet 10 mg PO DAILY 12/15/22 [History Last Taken 12/15/22] Allergy/AdvReac Type Severity Reaction Status Date / Time acetaminophen [From Vicodin] Allergy Nausea Verified 12/15/22 13:57 hydrocodone [From Vicodin] Allergy Nausea Verified 12/15/22 13:57 Family History Other COPD (chronic obstructive pulmonary disease) Diabetes Hypertension Surgical History History of tooth extraction Social History Smoking Status: Never smoker ROS Constitutional Constitutional: Reports anorexia and weight loss Gastrointestinal Gastrointestinal: Reports nausea and vomiting; Denies abdominal pain, diarrhea, hematochezia or melena Musculoskeletal Musculoskeletal: Reports abnormal gait, difficulty walking and muscle weakness Physical Exam Const oriented x3 and no apparent distress Constitutional Narrative: Continued flatter affect Resp normal respiratory effort GI GI Narrative: Nondistended, no scars, soft, nontender to palpation, negative Weaver sign Medical Records Data Medical Nutrition Assessment Dietitian: Malnutrition Criteria Met Start: 12/16/22 11:20 Freq: Status: Active Protocol: Document 12/16/22 11:21 RMA (Rec: 12/16/22 11:21 RMA [id number]) Nutrition Malnutrition Evidence of Malnutrition Exists Yes Malnutrition (severe): Acute Illness/Injury Evidenced By Suboptimal Energy Intake ( Severe),Weight Loss (Severe) Intake Problem Inadequate Oral Intake Etiology related to difficulty chewing Signs/Symptoms as evidenced by edentulous state and unintended weight loss~22% x 3 months Status Active Problem Clinical Problem Acute Disease or Injury Related Malnutrition Etiology Severe protein-calorie malnutrition in the context of acute condition related to inability to take adequate PO, chew difficulty/edentulous state and altered GI function/ intractable nausea and vomiting Signs/Symptoms as evidenced by ~22% unintentional weight loss x 3 months and PO meeting less than 50% estimated nutrition needs x past 3 months following full mouth dental extraction Status Active Problem Recommendation Dietitian Recommendations/Changes Recommend advance diet as tolerated to fat-restricted as needed due to cholecystitis; pt will need soft foods in addition to full liquid diet until dental hindu is complete. Add 240mL ensure clear TID as diet advanced from NPO; pt dislikes regular ensure. Additional ONS as pt willing and able to tolerate with advancement of diet. Lab / Micro Data 12/16/22 05:54 12/16/22 05:54 Labs: Laboratory Results - last 24 hr 12/16/22 05:54: WBC 12.0 H, RBC 4.10 L, Hgb 12.9, Hct 38.8, MCV 94.6, MCH 31.5, MCHC 33.2, RDW Std Deviation 51.5 H, RDW Coeff of Odalys 14.8 H, Plt Count 347, MPV 10.9, Immature Gran % (Auto) 1.000 H, Neut % (Auto) 70.1 H, Lymph % (Auto) 18.0 L, [place] % (Auto) 9.5, Eos % (Auto) 0.7, Baso % (Auto) 0.7, Absolute Neuts (auto) 8.5 H, Absolute Lymphs (auto) 2.17, Nucleated RBC % 0, Sodium 136, Potassium 3.8, Chloride 106, Carbon Dioxide 22.0, Anion Gap 8, BUN 11, Creatinine 0.69, Estim Creat Clear Calc 98.02, Est GFR (MDRD) Af Amer 117, Est GFR (MDRD) Non-Af 97, BUN/Creatinine Ratio 15.9, Glucose 112 H, Calcium 8.9, Total Bilirubin 0.60, AST 58 H, ALT 124 H, Alkaline Phosphatase 128 H, Total Protein 7.1, Albumin 3.0 L, Globulin 4.1, Albumin/Globulin Ratio 0.7 L 12/16/22 09:24: ESR 46 H, Phosphorus 2.9, Magnesium 2.1, C-React Prot Ext Range 20.70 H, Prealbumin 18.8 L, Vitamin B12 523, Vitamin D 25-Hydroxy 11.2, Folate 4.50, Homocysteine 9.2, Syphilis Total Ab Non-reactive, HIV 1&2 Antibody Non- Reactive Radiology Impression Gallbladder Ultrasound 12/15/22 15:11 IMPRESSION: Multiple gallstones with underlying adenomyomatosis through the gallbladder wall. Thickening of gallbladder wall up to 4 mm. Although Weaver sign is negative, cannot entirely exclude acute cholecystitis. If this represents a clinical concern, recommend follow-up with HIDA scan. Right liver lobe simple cyst measuring 3.8 cm in maximum dimension. Remainder of the right upper quadrant ultrasound unremarkable. Electronically Signed: Shayy Burns MD at 16:44 EDT , MRCP 12/16/22 11:57 IMPRESSION: No biliary ductal dilatation or choledocholithiasis. Cholelithiasis without inflammatory appearance of the gallbladder. Electronically Signed: Nikita Peña MD at 16:16 EDT , Assessment & Plan Assessment/Plan (1) Intractable nausea and vomiting: (2) Abnormal liver function tests: PLAN: Plan 47-year-old with intractable nausea and vomiting and inability to eat secondary to removal of her teeth. Differential diagnosis does include gastroparesis, choledocholithiasis, celiac disease, gastritis, peptic ulcer disease. Her MRCP does not show any filling defects, gallbladder wall thickening, choledocholithiasis or cholecystitis. Awaiting gastric emptying study. She will likely need upper endoscopy to evaluate upper GI tract. Etiology unclear. Supportive treatment with IV fluids, as needed Zofran IV and as needed Compazine IV. Protonix 40 mg IV twice daily ordered. Charges/Coding Visit Charges Inpatient E&M: 61818 Init Hosp L3
[2022-12-16] MEDS: Ondansetron 4 MG/2 ML Vial IV (18:05)
--- NOTE | 2022-12-17 00:10 | NURSING ---
12/17 0010- pt helped to toilet w/ the assistance of 2 aids, gait belt and walker. pt displayed concerning weakness. aid informed RN of concern with ability to get pt safety back to bed. RN evaluated Pt on toilet. Vitals signs stable. pt said my legs just wont work. Decision made to get pt back to bed by standing and pivoting to wheelchair. gait belt was used to help patient stand. while pivoting from wheelchair to bed pt legs buckled but RN and aids were able to guide pt hips on the bed instead of the ground. pt made bedrest. external cathert placed. Vital signs 167/98, HR 105 99% RA
[2022-12-17 00:14] VITALS: BP 167/98; PULSE 105; RESP 20; TEMP 36.4; O2SAT 99
[2022-12-17] MEDS: 0.9% Normal Saline (1000mL) 1,000 ML 100 ML IV ×3 (02:01→23:26)
[2022-12-17 06:09] LABS: CMV Acute Antibody IgM < 30.0 AU/mL (0.0-29.9)
[2022-12-17 06:09] LABS: HEPATITIS B SURFACE AG Negative (Negative); Hep C Antibodies Non Reactive (Non Reactive); Hepatitis A IgM Antibody Negative (Negative); Hepatitis B Core AB IgM Negative (Negative)
[2022-12-17 06:19] LABS: Absolute Lymphocyte Count 2.29 X10^3/uL (0.83-4.51); Absolute Neutrophil Count 6.1 X10^3/uL (2.0-7.7); Basophil# 0.08 X10^3/uL; Basophil% 0.8 % (0-1); Hematocrit 36.7 % (37-47); Hemoglobin 12.3 g/dL (12.0-15.0); Lymphocyte # 2.29 X10^3/ul (0.83-4.51); Mean Corp Hgb Conc 33.5 g/dL (32-36); Mean Corpuscular Hgb 31.9 pg (27.0-32.0); Mean Corpuscular Volume 95.1 fL (81-99); Mean Platelet Vol. 10.9 fl (6.2-12.0); Monocyte% 9.4 % (0-10); NRBC Flagged by Analyzer 0 % (0-5); Neutrophil # 6.08 X10^3/uL (2.7-7.7); Neutrophil % 63.9 % (47-70); Platelet Count 307 K/mm3 (150-450); RBC Distribution Width CV 14.7 % (11.6-14.6); RBC Distribution Width SD 50.7 fl (35.1-43.9); Red Blood Count 3.86 M/mm3 (4.2-5.4); White Blood Count 9.5 K/mm3 (4.4-11.0)
[2022-12-17 06:47] LABS: ALB/GLOB Ratio 0.8 RATIO (0.9-2.4); AST(SGOT) 51 U/L (15-37); Alanine Aminotransfer ALT/SGPT 113 U/L (13-56); Albumin, Serum 2.9 g/dL (3.2-5.0); Alkaline Phosphatase 121 U/L (45-117); Anion Gap 8 (5-15); BUN 6 mg/dL (7-18); BUN/Creat Ratio 11.5 RATIO (10-20); Calcium,Total 8.8 mg/dL (8.5-10.1); Chloride 105 mmol/L (98-107); Creatinine, Serum 0.52 mg/dL (0.55-1.02); EST Glomerular Filtration Rate 133 mL/min (>60); Est Glom Filt Rate - Afr Amer 161 mL/min (>60); Estimated Creatinine Clearance 130.06 ml/min; Globulin 3.6 g/dL (2.2-4.2); Glucose 92 mg/dL (74-106); Potassium 3.5 mmol/L (3.5-5.1); Protein, Total 6.5 g/dL (6.4-8.2); Sodium Level 134 mmol/L (136-145)
[2022-12-17 06:58] LABS: Erythrocyte Sedimentation Rate 43 mm/hr (0-30)
--- NOTE | 2022-12-17 09:08 | PCM.PN.HOSP ---
Reason for Visit Reason for Visit: Diagnoses Other specified diseases of gallbladder (12/16/22) Nausea with vomiting, unspecified (12/16/22) Other specified abnormal findings of blood chemistry (12/16/22) Subjective Subjective Reported some vomiting earlier today, continues to deny abdominal pain, no bowel movement, nausea still waxing and waning. Objective Data Objective Data Vital Signs: Vital Signs Temp Pulse Resp BP Pulse Ox O2 Del Method 97.6 F L 105 H 20 H 167/98 H 99 Room Air 12/17/22 00:14 12/17/22 00:14 12/17/22 00:14 12/17/22 00:14 12/17/22 00:14 12/17/22 00:14 Oxygen Delivery Method Room Air Weight: 107.8 kg Body Mass Index (BMI) 37.2 Intake & Output: Intake and Output for Last 24 Hours 12/15/22 12/16/22 12/17/22 23:59 23:59 23:59 Intake Total 1337.5 / 1337.5 1620 / 1620 1000 / 1000 Balance 1337.5 / 1337.5 1620 / 1620 1000 / 1000 Medical Nutrition Assessment Dietitian: Malnutrition Criteria Met Start: 12/16/22 11:20 Freq: Status: Active Protocol: Document 12/16/22 11:21 RMA (Rec: 12/16/22 11:21 RMA [id number]) Nutrition Malnutrition Evidence of Malnutrition Exists Yes Malnutrition (severe): Acute Illness/Injury Evidenced By Suboptimal Energy Intake ( Severe),Weight Loss (Severe) Intake Problem Inadequate Oral Intake Etiology related to difficulty chewing Signs/Symptoms as evidenced by edentulous state and unintended weight loss~22% x 3 months Status Active Problem Clinical Problem Acute Disease or Injury Related Malnutrition Etiology Severe protein-calorie malnutrition in the context of acute condition related to inability to take adequate PO, chew difficulty/edentulous state and altered GI function/ intractable nausea and vomiting Signs/Symptoms as evidenced by ~22% unintentional weight loss x 3 months and PO meeting less than 50% estimated nutrition needs x past 3 months following full mouth dental extraction Status Active Problem Recommendation Dietitian Recommendations/Changes Recommend advance diet as tolerated to fat-restricted as needed due to cholecystitis; pt will need soft foods in addition to full liquid diet until dental scientologist is complete. Add 240mL ensure clear TID as diet advanced from NPO; pt dislikes regular ensure. Additional ONS as pt willing and able to tolerate with advancement of diet. Lab / Micro Data 12/17/22 05:22 12/17/22 05:22 Labs: Laboratory Results - last 24 hr 12/16/22 05:54: CMV IgM Ab < 30.0 12/16/22 09:24: ESR 46 H, Phosphorus 2.9, Magnesium 2.1, C-React Prot Ext Range 20.70 H, Prealbumin 18.8 L, Vitamin B12 523, Vitamin D 25-Hydroxy 11.2, Folate 4.50, Homocysteine 9.2, Syphilis Total Ab Non-reactive, Hepatitis A IgM Ab Negative, Hep Bs Antigen Negative, Hep B Core IgM Ab Negative, Hepatitis C Ab (EIA) Non Reactive, Hep C Ab Comment Comment, HIV 1&2 Antibody Non-Reactive 12/17/22 05:22: WBC 9.5, RBC 3.86 L, Hgb 12.3, Hct 36.7 L, MCV 95.1, MCH 31.9, MCHC 33.5, RDW Std Deviation 50.7 H, RDW Coeff of Odalys 14.7 H, Plt Count 307, MPV 10.9, Immature Gran % (Auto) 0.900, Neut % (Auto) 63.9, Lymph % (Auto) 24.0, [place] % (Auto) 9.4, Eos % (Auto) 1.0, Baso % (Auto) 0.8, Absolute Neuts (auto) 6.1, Absolute Lymphs (auto) 2.29, Nucleated RBC % 0, ESR 43 H, Sodium 134 L, Potassium 3.5, Chloride 105, Carbon Dioxide 21.0, Anion Gap 8, BUN 6 L, Creatinine 0.52 L, Estim Creat Clear Calc 130.06, Est GFR (MDRD) Af Amer 161, Est GFR (MDRD) Non-Af 133, BUN/Creatinine Ratio 11.5, Glucose 92, Calcium 8.8, Total Bilirubin 0.60, AST 51 H, ALT 113 H, Alkaline Phosphatase 121 H, C-React Prot Ext Range 19.30 H, Total Protein 6.5, Albumin 2.9 L, Globulin 3.6, Albumin/Globulin Ratio 0.8 L Radiography Diagnostic Testing: Radiology Impression MRCP 12/16/22 11:57 IMPRESSION: No biliary ductal dilatation or choledocholithiasis. Cholelithiasis without inflammatory appearance of the gallbladder. Electronically Signed: Nikita Peña MD at 16:16 EDT , Physical Exam Narrative General: Alert, oriented HEENT: Atraumatic, normocephalic Eyes: Anicteric, normal conjunctiva, extraocular movements grossly intact Neck: Supple Respiratory: Clear to auscultation bilaterally, normal respiratory effort Cardiovascular: Regular rate and rhythm GI: Soft, nontender, nondistended Extremities: No edema Musculoskeletal: Moving all extremities Neuro: No overt focal neurological deficits Skin: No rashes appreciated Psych: Reserved Assessment & Plan Assessment/Plan (1) Intractable nausea and vomiting: (2) Abnormal liver function tests: PLAN: Plan #Intractable n/v and weight loss -Patient had all of her teeth removed in September as she has some underlying calcium deposition difficulty and her subsequent dentures did not fit so she has been on a liquid diet for several months has lost 60 to 70 pounds and has had problems with intractable nausea and vomiting -Scans have been consistent with chronic cholecystitis without acute cause identified -Patient was started on PPI, Carafate, Reglan at [facility] where she was up until Wednesday but is continued to have difficulty eating -Do not see where she has had endoscopies or gastric emptying study and patient confirms she has not had these, given her symptoms and otherwise negative work-up GI consulted -Discussed with surgery, does not seem to have surgical indication for cholecystectomy at this time -We will consult gastroenterology, did CT scan from outlying facility which had thickening in her transverse colon of unclear significance, reportedly was supposed to have endoscopies but did not have these completed, GI consulted -Assessing patient for nutritional deficiencies that may have developed and may be worsening neurologic complications -Symptomatic treatment with Zofran, PPI, IV fluids -12/17: Evaluated by gastroenterology, MRCP negative for acute cholecystitis. Gastric emptying study today. Cannot rule out need for EGD moving forward. ESR and CRP were 46 and 20.7 respectively, slightly down trended again today. 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 Patient ambulated 20 feet with a wheeled walker and decreased speed. Continue to work with physical therapy, will need to follow-up with neurology on discharge #gallbladder wall thickening/abn LFTs -Likely chronic cholecystitis, no acute surgical indication -Darline had multiple abdominal ultrasounds, shannon Mckeon, abdominal CT scans -Discussed with surgery service -Hepatitis panel, CMV and EBV, HIV -12/17: MRCP with no acute cholecystitis, liver function slightly improved today, GI following #DVT ppx: Bertinx Pau Kumari MD Time spent in the patient's overall evaluation,decision-making process, review of diagnostic data, adjustment of management, discussion with other providers, nursing nursing and ancillary staff involved in patient's care documentation, 40 Minutes Charges/Coding Visit Charges Inpatient E&M: 10688 Subs Hosp L2
[2022-12-17 09:14] VITALS: O2SAT 99
[2022-12-17 09:19] VITALS: BP 145/91; PULSE 95; RESP 14; TEMP 36.3
[2022-12-17] MEDS: Enoxaparin 40 MG/0.4 ML Syringe SC (09:28)
[2022-12-17] MEDS: Ondansetron 4 MG/2 ML Vial IV (09:28)
[2022-12-17] MEDS: 0.9% Saline Lock 10 ML Syringe IV (09:28)
--- NOTE | 2022-12-17 10:00 | NM_ITS ---
CLINICAL: 47-year-old female with history of chronic nausea. SEMI-SOLID PHASE 99m Tc SULFUR COLLOID GASTRIC EMPTYING STUDY COMPARISON: Abdominal ultrasound report 12/15/2022 FINDINGS: The patient was administered 1.2 mCi of 99m Tc sulfur colloid mixed with oatmeal and consumed per os. Image acquisitions in the anterior -posterior projections were obtained for 60 minutes. There is prompt visualization of the stomach. There is no gastroesophageal reflux identified. First order kinetics are maintained throughout the duration of the acquisitions. The T ? linear fit was extrapolated to be 205.85 minutes, (Normal: 12-56 minutes). NM/Gastric Emptying Study IMPRESSION: 1. ABNORMAL 99m Tc sulfur colloid semi-solid phase (oatmeal) gastric emptying imaging examination. A. There is delayed semi-solid phase gastric emptying compared to normal controls. (Bridger et al, J Nucl Med Tech 38: 186, 2010). Electronically Signed: Joshua Calderon DO at 12:31 EDT ,
[2022-12-17] MEDS: Pantoprazole Sodium 40 MG in 0.9% Normal Saline (100mL MB+) 100 ML 330 MG IV ×2 (10:02→22:59)
--- NOTE | 2022-12-17 16:44 | PN.GI_ITS ---
Subjective Subjective Patient underwent gastric emptying study today. She does not have any abdominal pain but she still has some nausea. Objective Data Objective Data Vital Signs: Vital Signs Temp Pulse Resp BP Pulse Ox O2 Del Method 97.4 F L 95 14 145/91 H 99 Room Air 12/17/22 09:19 12/17/22 09:19 12/17/22 09:19 12/17/22 09:19 12/17/22 09:14 12/17/22 09:19 Oxygen Delivery Method Room Air Weight: 237 lb 10.533 oz Body Mass Index (BMI) 37.2 Intake & Output: Intake and Output for Last 24 Hours 12/15/22 12/16/22 12/17/22 23:59 23:59 23:59 Intake Total 1337.5 / 1337.5 1620 / 1620 211 / 0 Output Total 500 / 500 Balance 1337.5 / 1337.5 1620 / 1620 1610 / 1610 Medical Nutrition Assessment Dietitian: Malnutrition Criteria Met Start: 12/16/22 11:20 Freq: Status: Active Protocol: Document 12/16/22 11:21 RMA (Rec: 12/16/22 11:21 RMA [id number]) Nutrition Malnutrition Evidence of Malnutrition Exists Yes Malnutrition (severe): Acute Illness/Injury Evidenced By Suboptimal Energy Intake ( Severe),Weight Loss (Severe) Intake Problem Inadequate Oral Intake Etiology related to difficulty chewing Signs/Symptoms as evidenced by edentulous state and unintended weight loss~22% x 3 months Status Active Problem Clinical Problem Acute Disease or Injury Related Malnutrition Etiology Severe protein-calorie malnutrition in the context of acute condition related to inability to take adequate PO, chew difficulty/edentulous state and altered GI function/ intractable nausea and vomiting Signs/Symptoms as evidenced by ~22% unintentional weight loss x 3 months and PO meeting less than 50% estimated nutrition needs x past 3 months following full mouth dental extraction Status Active Problem Recommendation Dietitian Recommendations/Changes Recommend advance diet as tolerated to fat-restricted as needed due to cholecystitis; pt will need soft foods in addition to full liquid diet until dental caodaism is complete. Add 240mL ensure clear TID as diet advanced from NPO; pt dislikes regular ensure. Additional ONS as pt willing and able to tolerate with advancement of diet. Lab / Micro Data 12/17/22 05:22 12/17/22 05:22 Labs: Laboratory Results - last 24 hr 12/16/22 05:54: CMV IgM Ab < 30.0 12/16/22 09:24: Hepatitis A IgM Ab Negative, Hep Bs Antigen Negative, Hep B Core IgM Ab Negative, Hepatitis C Ab (EIA) Non Reactive, Hep C Ab Comment Comment 12/17/22 05:22: WBC 9.5, RBC 3.86 L, Hgb 12.3, Hct 36.7 L, MCV 95.1, MCH 31.9, MCHC 33.5, RDW Std Deviation 50.7 H, RDW Coeff of Odalys 14.7 H, Plt Count 307, MPV 10.9, Immature Gran % (Auto) 0.900, Neut % (Auto) 63.9, Lymph % (Auto) 24.0, [place] % (Auto) 9.4, Eos % (Auto) 1.0, Baso % (Auto) 0.8, Absolute Neuts (auto) 6. 1, Absolute Lymphs (auto) 2.29, Nucleated RBC % 0, ESR 43 H, Sodium 134 L, Potassium 3.5, Chloride 105, Carbon Dioxide 21.0, Anion Gap 8, BUN 6 L, Creatinine 0.52 L, Estim Creat Clear Calc 130.06, Est GFR (MDRD) Af Amer 161, Est GFR (MDRD) Non-Af 133, BUN/Creatinine Ratio 11.5, Glucose 92, Calcium 8.8, Total Bilirubin 0.60, AST 51 H, ALT 113 H, Alkaline Phosphatase 121 H, C-React Prot Ext Range 19.30 H, Total Protein 6.5, Albumin 2.9 L, Globulin 3.6, Albumin/Globulin Ratio 0.8 L Radiography Diagnostic Testing: Radiology Impression Gallbladder Ultrasound 12/15/22 15:11 IMPRESSION: Multiple gallstones with underlying adenomyomatosis through the gallbladder wall. Thickening of gallbladder wall up to 4 mm. Although Weaver sign is negative, cannot entirely exclude acute cholecystitis. If this represents a clinical concern, recommend follow-up with HIDA scan. Right liver lobe simple cyst measuring 3.8 cm in maximum dimension. Remainder of the right upper quadrant ultrasound unremarkable. Electronically Signed: Shayy Burns MD at 16:44 EDT , KUB X-Ray 12/15/22 19:25 IMPRESSION: Moderate fecal debris within the colon. Otherwise nonspecific gas pattern with no signs of obstruction or free air. Electronically Signed: Shayy Burns MD at 19:42 EDT , Gastric Emptying Nuclear Medicine 12/17/22 10:00 IMPRESSION: 1. ABNORMAL 99m Tc sulfur colloid semi-solid phase (oatmeal) gastric emptying imaging examination. A. There is delayed semi-solid phase gastric emptying compared to normal controls. (Bridger et al, J Nucl Med Tech 38: 186, 2010). Electronically Signed: Joshua Calderon DO at 12:31 EDT , Physical Exam Narrative General: Alert, oriented HEENT: Atraumatic, normocephalic Eyes: Anicteric, normal conjunctiva, extraocular movements grossly intact Neck: Supple Respiratory: Clear to auscultation bilaterally, normal respiratory effort Cardiovascular: Regular rate and rhythm GI: Soft, nontender, nondistended Extremities: No edema Musculoskeletal: Moving all extremities Neuro: No overt focal neurological deficits Skin: No rashes appreciated Psych: Reserved Assessment & Plan Assessment/Plan (1) Intractable nausea and vomiting: (2) Abnormal liver function tests: PLAN: Plan 47-year-old with intractable nausea and vomiting and inability to eat secondary to removal of her teeth. Differential diagnosis does include gastroparesis, choledocholithiasis, celiac disease, gastritis, peptic ulcer disease. Her MRCP does not show any filling defects, gallbladder wall thickening, c holedocholithiasis or cholecystitis. Her gastric emptying study is severely prolonged at 200 minutes. And also that can be extrapolated to 20% emptying at a 4-hour gualberto in which 10% at the 4-hour gualberto will be abnormal. She will undergo an upper endoscopy to evaluate upper GI tract to see if there is any signs of peptic ulcer disease or pyloric stenosis that may be contributing to gastroparesis. Supportive treatment with IV fluids, as needed Zofran IV and as needed Compazine IV. Protonix 40 mg IV twice daily ordered. Charges/Coding Visit Charges Inpatient E&M: 48075 [facility] Hosp L3
[2022-12-17 18:23] VITALS: BP 147/85; PULSE 87; RESP 14; TEMP 36.4; O2SAT 97
[2022-12-17 22:57] VITALS: BP 150/89; PULSE 100; RESP 18; TEMP 36.6; O2SAT 100
[2022-12-18] VITALS (10 sets, daily range): BP systolic 102–161; BP diastolic 67–105; PULSE 91–114; RESP 18; TEMP 36.1–36.8; O2SAT 96–100; BMI 37.2
--- NOTE | 2022-12-18 | GASB_PTH ---
PATIENT: WIL CAMPBELL LOC: [facility] U#:[id number] AGE/SX: 47/F ROOM: [facility] RE12/16/[address]: Dr. Talon Bueno DO : 1975 BED: 1 DIS: 12/24/2022 SPEC #: [id number] RECD: 12/18/22 13:43 STATUS: GALLO JEWELL #: [id number] STEPHY: 12/18/22 00:[address]: Tom Byrd DEPT: SURGICAL PATHOLOGY RECD BY: Fady Morrison ENTERED: 12/18/22 13:44 SP TYPE: Gastric Bx OTHR DR: MD Dr. Erasmo Pierre MD Dr. Megan Oberhauser, DO Dr. Paige Pierce, MD Tissues: A - Duodenum, NOS B - Gastric mucous membrane Procedures: Surgery Specimen Level IV Comments: @ Ordering doctor for SUIV edited from to @ by MAGGIE at 12/18/22 1423 @ Submitting doctor edited from to @ by RGOOD at 12/18/22 1423 HEADER OPERATION: EGD and biopsy PRE-OP DIAGNOSIS: Intractable nausea TISSUE SUBMITTED: A - Duodenum biopsy, B - Gastric body biopsy, H. pylori MICROSCOPIC DIAGNOSIS A. Duodenum, biopsy: Fragments of duodenal mucosa, no pathologic diagnosis. B. Gastric body, biopsy: Moderate chronic active gastritis. See comment. SJ:renita 12/21/2022 COMMENT B. The results of immunohistochemistry for Helicobacter pylori will be reported separately ([id number]). MICROSCOPIC DESCRIPTION Slides are reviewed. GROSS DESCRIPTION A - Received in fixative is one container labeled with the patient's name and designated duodenum biopsy. The specimen consists of two irregular fragments of light malin soft tissue that in aggregate measure 0.5 x 0.2 x 0.1 cm. The specimen is totally submitted in one cassette. B - Received in fixative is one container labeled with the patient's name and designated gastric body. The specimen consists of multiple irregular fragments of light malin soft tissue that in aggregate measure 0.7 x 0.5 x 0.1 cm. The specimen is totally submitted in one cassette. / AM:renita 12/18/2022 TC:2 CPT: 24154 x2
--- NOTE | 2022-12-18 05:55 | EKG12_ITS ---
Test Reason : AM EKG Blood Pressure : / mmHG Vent. Rate : 097 BPM Atrial Rate : 097 BPM P-R Int : 150 ms QRS Dur : 084 ms QT Int : 348 ms P-R-T Axes : 036 -29 018 degrees QTc Int : 441 ms Normal sinus rhythm Normal ECG When compared with ECG of 15-DEC-2022 15:20, MANUAL COMPARISON REQUIRED, DATA IS UNCONFIRMED Confirmed by ANTONIO PAL, RAYMUNDO ([id number]), publications editor KARLA BEE ([id number]) on 12/24/2022 1:46:37 PM Referred By: Confirmed By:RAYMUNDO ALVAREZ MD
[2022-12-18 06:51] LABS: Absolute Lymphocyte Count 1.67 X10^3/uL (0.83-4.51); Absolute Neutrophil Count 6.6 X10^3/uL (2.0-7.7); Basophil# 0.06 X10^3/uL; Basophil% 0.6 % (0-1); Eosinophil# 0.04 X10^3/uL; Eosinophils% 0.4 % (0-5); Hematocrit 38.5 % (37-47); Lymphocyte # 1.67 X10^3/ul (0.83-4.51); Lymphocyte % 17.9 % (19-41); Mean Corp Hgb Conc 33.8 g/dL (32-36); Mean Corpuscular Hgb 31.7 pg (27.0-32.0); Mean Corpuscular Volume 93.9 fL (81-99); Mean Platelet Vol. 10.7 fl (6.2-12.0); Monocyte# 0.84 X10^3/uL; NRBC Flagged by Analyzer 0 % (0-5); Neutrophil # 6.62 X10^3/uL (2.7-7.7); Neutrophil % 71.1 % (47-70); Platelet Count 316 K/mm3 (150-450); RBC Distribution Width CV 14.5 % (11.6-14.6); RBC Distribution Width SD 49.8 fl (35.1-43.9); White Blood Count 9.3 K/mm3 (4.4-11.0)
[2022-12-18 07:22] LABS: ALB/GLOB Ratio 0.7 RATIO (0.9-2.4); AST(SGOT) 61 U/L (15-37); Alanine Aminotransfer ALT/SGPT 128 U/L (13-56); Alkaline Phosphatase 133 U/L (45-117); Anion Gap 13 (5-15); BUN 6 mg/dL (7-18); BUN/Creat Ratio 11.3 RATIO (10-20); Calcium,Total 8.8 mg/dL (8.5-10.1); Chloride 103 mmol/L (98-107); Creatinine, Serum 0.53 mg/dL (0.55-1.02); EST Glomerular Filtration Rate 131 mL/min (>60); Est Glom Filt Rate - Afr Amer 158 mL/min (>60); Estimated Creatinine Clearance 127.61 ml/min; Globulin 4.1 g/dL (2.2-4.2); Glucose 108 mg/dL (74-106); Potassium 3.6 mmol/L (3.5-5.1); Protein, Total 7.1 g/dL (6.4-8.2); Sodium Level 138 mmol/L (136-145)
[2022-12-18] MEDS: 0.9% Saline Lock 10 ML Syringe IV ×2 (08:41→18:07)
[2022-12-18] MEDS: Ondansetron 4 MG/2 ML Vial IV ×2 (08:41→18:07)
--- NOTE | 2022-12-18 08:41 | PCM.PN.HOSP ---
Reason for Visit Reason for Visit: Diagnoses Other specified diseases of gallbladder (12/16/22) Nausea with vomiting, unspecified (12/16/22) Other specified abnormal findings of blood chemistry (12/16/22) Subjective Subjective Feels nauseous with some dry heaving, overall weak feeling Objective Data Objective Data Vital Signs: Vital Signs Temp Pulse Resp BP Pulse Ox O2 Del Method 97.8 F 93 18 144/91 H 96 Room Air 12/18/22 06:35 12/18/22 06:35 12/18/22 06:35 12/18/22 06:35 12/18/22 08:23 12/18/22 08:23 Oxygen Delivery Method Room Air Weight: 107.8 kg Body Mass Index (BMI) 37.2 Intake & Output: Intake and Output for Last 24 Hours 12/16/22 12/17/22 12/18/22 23:59 23:59 23:59 Intake Total 1620 / 1620 3220 / 3220 Output Total 500 / 500 Balance 1620 / 1620 2720 / 2720 Medical Nutrition Assessment Dietitian: Malnutrition Criteria Met Start: 12/16/22 11:20 Freq: Status: Active Protocol: Document 12/16/22 11:21 RMA (Rec: 12/16/22 11:21 RMA [id number]) Nutrition Malnutrition Evidence of Malnutrition Exists Yes Malnutrition (severe): Acute Illness/Injury Evidenced By Suboptimal Energy Intake ( Severe),Weight Loss (Severe) Intake Problem Inadequate Oral Intake Etiology related to difficulty chewing Signs/Symptoms as evidenced by edentulous state and unintended weight loss~22% x 3 months Status Active Problem Clinical Problem Acute Disease or Injury Related Malnutrition Etiology Severe protein-calorie malnutrition in the context of acute condition related to inability to take adequate PO, chew difficulty/edentulous state and altered GI function/ intractable nausea and vomiting Signs/Symptoms as evidenced by ~22% unintentional weight loss x 3 months and PO meeting less than 50% estimated nutrition needs x past 3 months following full mouth dental extraction Status Active Problem Recommendation Dietitian Recommendations/Changes Recommend advance diet as tolerated to fat-restricted as needed due to cholecystitis; pt will need soft foods in addition to full liquid diet until dental pentecostalism is complete. Add 240mL ensure clear TID as diet advanced from NPO; pt dislikes regular ensure. Additional ONS as pt willing and able to tolerate with advancement of diet. Lab / Micro Data 12/18/22 06:20 12/18/22 06:20 Labs: Laboratory Results - last 24 hr 12/18/22 06:20: WBC 9.3, RBC 4.10 L, Hgb 13.0, Hct 38.5, MCV 93.9, MCH 31.7, MCHC 33.8, RDW Std Deviation 49.8 H, RDW Coeff of Odalys 14.5, Plt Count 316, MPV 10.7, Immature Gran % (Auto) 1.000 H, Neut % (Auto) 71.1 H, Lymph % (Auto) 17.9 L, [place] % (Auto) 9.0, Eos % (Auto) 0.4, Baso % (Auto) 0.6, Absolute Neuts (auto) 6.6, Absolute Lymphs (auto) 1.67, Nucleated RBC % 0, Sodium 138, Potassium 3.6, Chloride 103, Carbon Dioxide 22.0, Anion Gap 13, BUN 6 L, Creatinine 0.53 L, Estim Creat Clear Calc 127.61, Est GFR (MDRD) Af Amer 158, Est GFR (MDRD) Non-Af 131, BUN/Creatinine Ratio 11.3, Glucose 108 H, Calcium 8.8, Total Bilirubin 0.70, AST 61 H, ALT 128 H, Alkaline Phosphatase 133 H, Total Protein 7.1, Albumin 3.0 L, Globulin 4.1, Albumin/Globulin Ratio 0.7 L Radiography Diagnostic Testing: Radiology Impression Gallbladder Ultrasound 12/15/22 15:11 IMPRESSION: Multiple gallstones with underlying adenomyomatosis through the gallbladder wall. Thickening of gallbladder wall up to 4 mm. Although Weaver sign is negative, cannot entirely exclude acute cholecystitis. If this represents a clinical concern, recommend follow-up with HIDA scan. Right liver lobe simple cyst measuring 3.8 cm in maximum dimension. Remainder of the right upper quadrant ultrasound unremarkable. Electronically Signed: Shayy Burns MD at 16:44 EDT , KUB X-Ray 12/15/22 19:25 IMPRESSION: Moderate fecal debris within the colon. Otherwise nonspecific gas pattern with no signs of obstruction or free air. Electronically Signed: Shayy Burns MD at 19:42 EDT , Gastric Emptying Nuclear Medicine 12/17/22 10:00 IMPRESSION: 1. ABNORMAL 99m Tc sulfur colloid semi-solid phase (oatmeal) gastric emptying imaging examination. A. There is delayed semi-solid phase gastric emptying compared to normal controls. (Bridger et al, J Nucl Med Tech 38: 186, 2010). Electronically Signed: Joshua Calderon DO at 12:31 EDT , Physical Exam Narrative General: Alert, oriented HEENT: Atraumatic, normocephalic Eyes: Anicteric, normal conjunctiva, extraocular movements grossly intact Neck: Supple Respiratory: Clear to auscultation bilaterally, normal respiratory effort Cardiovascular: Regular rate and rhythm GI: Soft, nontender, nondistended Extremities: No edema Musculoskeletal: Moving all extremities Neuro: No overt focal neurological deficits Skin: No rashes appreciated Psych: Reserved Assessment & Plan Assessment/Plan (1) Intractable nausea and vomiting: (2) Abnormal liver function tests: PLAN: Plan #Intractable n/v and weight loss, gastroparesis -Patient had all of her teeth removed in September as she has some underlying calcium deposition difficulty and her subsequent dentures did not fit so she has been on a liquid diet for several months has lost 60 to 70 pounds and has had problems with intractable nausea and vomiting -Scans have been consistent with chronic cholecystitis without acute cause identified -Patient was started on PPI, Carafate, Reglan at [facility] where she was up until Wednesday but is continued to have difficulty eating -Do not see where she has had endoscopies or gastric emptying study and patient confirms she has not had these, given her symptoms and otherwise negative work-up GI consulted -Discussed with surgery, does not seem to have surgical indication for cholecystectomy at this time -We will consult gastroenterology, did CT scan from outlying facility which had thickening in her transverse colon of unclear significance, reportedly was supposed to have endoscopies but did not have these completed, GI consulted -Assessing patient for nutritional deficiencies that may have developed and may be worsening neurologic complications -Symptomatic treatment with Zofran, PPI, IV fluids -12/17: Evaluated by gastroenterology, MRCP negative for acute cholecystitis. Gastric emptying study today. Cannot rule out need for EGD moving forward. ESR and CRP were 46 and 20.7 respectively, slightly down trended again today. 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 Patient ambulated 20 feet with a wheeled walker and decreased speed. Continue to work with physical therapy, will need to follow-up with neurology on discharge -12/18: Feels generally weak, is working with physical therapy and Occupational Therapy and continued therapy is recommended #gallbladder wall thickening/abn LFTs -Likely chronic cholecystitis, no acute surgical indication -Darline had multiple abdominal ultrasounds, shannon Mckeon, abdominal CT scans -Discussed with surgery service -Hepatitis panel, CMV and EBV, HIV -12/17: MRCP with no acute cholecystitis, liver function slightly improved today, GI following -12/18: Laboratory values similar to yesterday, continue to be elevated, work-up as above #Depression -Resumed home the last known and Wellbutrin, will benefit from following up on outpatient basis #DVT ppx: Loveernestinex Pau Kumari MD Time spent in the patient's overall evaluation,decision-making process, review of diagnostic data, adjustment of management, discussion with other providers, nursing nursing and ancillary staff involved in patient's care documentation, 40 Minutes Charges/Coding Visit Charges Inpatient E&M: 55822 Subs Hosp L2
[2022-12-18] MEDS: 0.9% Normal Saline (1000mL) 1,000 ML 100 ML IV ×2 (09:23→16:54)
[2022-12-18] MEDS: Pantoprazole Sodium 40 MG in 0.9% Normal Saline (100mL MB+) 100 ML 330 MG IV ×2 (09:25→21:36)
[2022-12-18] MEDS: proCHLORPERazine 10 MG/2 ML Vial 5 MG IV (09:27)
--- NOTE | 2022-12-18 11:30 | IMM_PTH ---
PATIENT: WIL CAMPBELL LOC: [facility] U#:[id number] AGE/SX: 47/F ROOM: [facility] RE12/16/[address]: Dr. Talon Bueno DO : 1975 BED: 1 DIS: 12/24/2022 SPEC #: [id number] RECD: 12/18/22 14:23 STATUS: GALLO REQ #: [id number] STEPHY: 12/18/22 11:[address]: Tom Byrd DEPT: IMMUNOHISTOCHEMISTRY RECD BY: Alejandra Bejarano ENTERED: 12/18/22 14:24 SP TYPE: IMMUNO OTHR DR: MD Dr. Erasmo Pierre MD Dr. Megan Oberhauser, DO Dr. Paige Pierce, MD Tissues: B - Stomach, NOS Procedures: H Pylori (initial) PHYSICIAN & INSTITUTION [place] [address] SPECIMEN INFORMATION: Tissue Source: B - Gastric body Clinical Info: Daya rod Specimen Number: [id number] CPT code: 79513 METHODOLOGY: Deparaffinized sections of prefer/formalin-fixed tissue or PAP/DQ stained slides are incubated with monoclonal/polyclonal antibodies/oligonucleotide probes. Localization is made via biotin free immunoperoxidase method. Appropriate controls are performed and reacted as expected. Results on target cell population are indicated in the following table: RESULTS: ANTIBODY / CLONE RESULT Block B H Pylori (polyclonal) negative These tests were developed and their performance characteristics determined by [facility]. They may not have been cleared or approved by the U.S. Food and Drug Administration. The FDA has determined that such clearance or approval is not necessary. The above immunohistochemical/dualISH markers are ordered and reviewed by the Pathologist. INTERPRETATION: B. Gastric body, biopsy: Negative for Helicobacter pylori organisms. RANDY:renita 12/21/2022
--- NOTE | 2022-12-18 12:01 | OP.EGD_ITS ---
Patient Name: Bailey Bergeron Procedure Date: 12/18/2022 11:11 AM Date of : 1975 Age: 47 Procedure: Upper GI endoscopy Indications: Functional Dyspepsia Providers: Tom Byrd DO Medicines: Monitored Anesthesia Care Patient Profile: This is a 47 year old female. Refer to note in patient chart for documentation of history and physical. Patient has symptoms of chronic nausea and acute vomiting. Complications: No immediate complications. Procedure: Pre-Anesthesia Assessment: - Prior to the procedure, a History and Physical was performed, and patient medications and allergies were reviewed. The risks and benefits of the procedure and the sedation options and risks were discussed with the patient. All questions were answered and informed consent was obtained. Patient identification and proposed procedure were verified by the physician in the pre-procedure area. Mental Status Examination: alert and oriented. Airway Examination: normal oropharyngeal airway and neck mobility. Respiratory Examination: clear to auscultation. CV Examination: normal. Prophylactic Antibiotics: The patient does not require prophylactic antibiotics. Prior Anticoagulants: The patient has taken no previous anticoagulant or antiplatelet agents. ASA Grade Assessment: II - A patient with mild systemic disease. After reviewing the risks and benefits, the patient was deemed in satisfactory condition to undergo the procedure. The anesthesia plan was to use monitored anesthesia care (MAC). Immediately prior to administration of medications, the patient was re-assessed for adequacy to receive sedatives. The heart rate, respiratory rate, oxygen saturations, blood pressure, adequacy of pulmonary ventilation, and response to care were monitored throughout the procedure. The physical status of the patient was re-assessed after the procedure. After obtaining informed consent, the endoscope was passed under direct vision. Throughout the procedure, the patient's blood pressure, pulse, and oxygen saturations were monitored continuously. The gastroscope was introduced through the mouth, and advanced to the second part of duodenum. The upper GI endoscopy was accomplished without difficulty. The patient tolerated the procedure well. Scope In: 11:51:55 AM Scope Out: 11:56:21 AM Total Procedure Duration Time 0 hours 4 minutes 26 seconds Findings: The examined esophagus was normal. Localized mild inflammation characterized by erosions and erythema was found in the gastric body. Biopsies were taken with a cold forceps for histology. Verification of patient identification for the specimen was done. Biopsies were taken with a cold forceps for histology. Verification of patient identification for the specimen was done. Estimated blood loss was minimal. Biopsies were taken with a cold forceps for Helicobacter pylori testing. Verification of patient identification for the specimen was done. Estimated blood loss was minimal. Patchy mildly erythematous mucosa without active bleeding and with no stigmata of bleeding was found in the duodenal bulb. Biopsies were taken with a cold forceps for histology. Verification of patient identification for the specimen was done. Estimated blood loss was minimal. Impression: - Normal esophagus. - Acute gastritis. Biopsied. - Erythematous duodenopathy. Biopsied. Recommendation: - [facility]. - Advance diet as tolerated. - Continue present medications. Procedure Code(s): --- Professional --- 34288, Esophagogastroduodenoscopy, flexible, transoral; with biopsy, single or multiple CPT copyright 2021 [employer]. All rights reserved. The codes documented in this report are preliminary and upon braiding operator review may be revised to meet current compliance requirements. Tom Byrd DO 12/18/2022 12:00:37 PM This report has been signed electronically. Number of Addenda: 0 Note Initiated On: 12/18/2022 11:11 AM
--- NOTE | 2022-12-18 12:01 | OP.CCLET_ITS ---
12/18/2022 Rissa Brasher Do Re : Upper GI endoscopy procedure for Bailey Bergeron Dear Sameera This procedure was performed on Sunday, December 18, 2022. My impressions and recommendations are as follows: Impressions : - Normal esophagus. - Acute gastritis. Biopsied. - Erythematous duodenopathy. Biopsied. Recommendations : - [facility]. - Advance diet as tolerated. - Continue present medications. My findings are described in the full procedure note, which is enclosed. If I can be of further assistance, please feel free to contact me at . Sincerely, Tom Byrd, 12/18/2022 12:00:37 PM This report has been signed electronically.
--- NOTE | 2022-12-18 12:15 | CASEMGMT ---
Discharge Planning A list of SNF providers including quality and resource use data and consistent with the patient's preferred geographic region, medical needs, and insurance network was created in [facility] [facility].? This list was provided to the SW. Tricia Fagan Discharge Planning Asst.
[2022-12-18] MEDS: VILAZODONE HYDROCHLORIDE 10 MG TABLET PO (13:19)
[2022-12-18] MEDS: Cholecalciferol (Vit D3) 125 MCG CAPSULE (5,000 UNITS) PO (13:20)
[2022-12-18] MEDS: buPROPion (XL) 300 MG TABLET.XL PO (13:20)
--- NOTE | 2022-12-18 13:54 | CASEMGMT ---
SW reviewed patient's therapy notes and patient is requiring a significant amount of assistance. SW went to patient's room. Patient's significant other was present, but patient was sleeping and still coming out of anesthesia. SW will check back with patient. Abeba Kelly LITHOGRAPHIC PRESS OPERATORJamal APONTE
[2022-12-18] MEDS: Acetaminophen 325 MG Tablet 650 MG PO (14:06)
[2022-12-18 15:08] LABS: Anti-Centromere B Ab <0.2 AI (0.0-0.9); Anti-Chromatin <0.2 AI (0.0-0.9); Anti-Jo <0.2 AI (0.0-0.9); Anti-Mitochondrial AB <20.0 Units (0.0-20.0); Anti-Scleroderma-70 AB <0.2 AI (0.0-0.9); Anti-dsDNA Ab <1 IU/mL (0-9); RNP Ab 0.2 AI (0.0-0.9); SJOGREN'S Anti-SS-A test < 0.2 AI (0.0-0.9); SJOGREN'S Anti-SS-B test < 0.2 AI (0.0-0.9); Smith Ab <0.2 AI (0.0-0.9)
[2022-12-18] MEDS: Ensure Clear 120 ML Liquid PO (16:49)
[2022-12-18] MEDS: Metoclopramide 5 MG TABLET PO (16:49)
[2022-12-18] MEDS: Mirtazapine 15 MG Tablet 7.5 MG PO (21:31)
[2022-12-19] VITALS (7 sets, daily range): BP systolic 119–176; BP diastolic 83–108; PULSE 90–118; RESP 16–18; TEMP 36.3–36.7; O2SAT 96–100
[2022-12-19] MEDS: Acetaminophen 325 MG Tablet 650 MG PO (01:06)
[2022-12-19] MEDS: 0.9% Normal Saline (1000mL) 1,000 ML 100 ML IV (02:58)
[2022-12-19] MEDS: Metoclopramide 5 MG TABLET PO ×3 (06:03→16:29)
--- NOTE | 2022-12-19 07:43 | PN.HOSP_ITS ---
Reason for Visit Reason for Visit: Diagnoses Other specified diseases of gallbladder (12/16/22) Nausea with vomiting, unspecified (12/16/22) Other specified abnormal findings of blood chemistry (12/16/22) Subjective Subjective Patient is a 47-year-old lady who presented with intractable nausea and vomit Objective Data Objective Data Vital Signs: Vital Signs Temp Pulse Resp BP Pulse Ox O2 Del Method 98.0 F 114 H 18 152/96 H 100 Room Air 12/19/22 02:30 12/19/22 02:30 12/19/22 02:30 12/19/22 02:30 12/19/22 02:30 12/19/22 02:40 Oxygen Delivery Method Room Air Weight: 107.8 kg Body Mass Index (BMI) 37.2 Intake & Output: Intake and Output for Last 24 Hours 12/17/22 12/18/22 12/19/22 23:59 23:59 23:59 Intake Total 3220 / 3220 2166.67 / 2166.67 1000 / 1000 Output Total 500 / 500 0 / 0 300 / 300 Balance 2720 / 2720 2166.67 / 2166.67 700 / 700 Medical Nutrition Assessment Dietitian: Malnutrition Criteria Met Start: 12/16/22 11:20 Freq: Status: Active Protocol: Document 12/16/22 11:21 RMA (Rec: 12/16/22 11:21 RMA [id number]) Nutrition Malnutrition Evidence of Malnutrition Exists Yes Malnutrition (severe): Acute Illness/Injury Evidenced By Suboptimal Energy Intake ( Severe),Weight Loss (Severe) Intake Problem Inadequate Oral Intake Etiology related to difficulty chewing Signs/Symptoms as evidenced by edentulous state and unintended weight loss~22% x 3 months Status Active Problem Clinical Problem Acute Disease or Injury Related Malnutrition Etiology Severe protein-calorie malnutrition in the context of acute condition related to inability to take adequate PO, chew difficulty/edentulous state and altered GI function/ intractable nausea and vomiting Signs/Symptoms as evidenced by ~22% unintentional weight loss x 3 months and PO meeting less than 50% estimated nutrition needs x past 3 months following full mouth dental extraction Status Active Problem Recommendation Dietitian Recommendations/Changes Recommend advance diet as tolerated to fat-restricted as needed due to cholecystitis; pt will need soft foods in addition to full liquid diet until dental anabaptism is complete. Add 240mL ensure clear TID as diet advanced from NPO; pt dislikes regular ensure. Additional ONS as pt willing and able to tolerate with advancement of diet. Lab / Micro Data 12/19/22 08:18 12/19/22 08:18 Labs: Laboratory Results - last 24 hr 12/17/22 05:22: MAR-1 Antibody <0.2, SS-A/Ro IgG Antibody < 0.2, SS-B/La IgG Antibody < 0.2, Sm ([place]) Antibody <0.2, JUTE BAG CUTTING MACHINE OPERATOR Antibody 0.2, Scl-70 Scleroderma Ab <0.2, Double Strand DNA Ab <1, Centromere B Antibody <0.2, Anti-Mitochondrial Ab <20.0 Physical Exam Narrative GENERAL: cooperative HEENT: Atraumatic; normocephalic EYES; Anicteric, Normal Conjunctiva NECK; supple, normal thyroid, RESPIRATORY: Diminished to auscultation CARDIOVASCULAR: Regular S1 S2, GI: soft, normoactive bowel sounds, : No Renal angle tenderness; EXTREMITIES: No edema, no clubbing, MUSCULOSKELETAL: no muscle wasting NEURO: Awake; no lateralizing signs. SKIN: No Rash PSYCH; Flat affect Assessment & Plan Assessment/Plan (1) Intractable nausea and vomiting: (2) Abnormal liver function tests: PLAN: Plan Patient is a 47-year-old lady who presented with intractable nausea and vomiting 1. Intractable nausea and vomiting ? Patient gastric emptying studies came back consistent with gastroparesis. Seen in consultation by GI. Patient underwent EGD which demonstrated normal esophagus, acute gastritis and erythematous duodenopathy biopsied. Subsequently started on PPI and metoclopramide 2. Central vertigo ? Symptomatic treatment 3. Abnormal gallbladder ultrasound ? MRCP did not show evidence of acute cholecystitis. Patient seen by general surgery 4. Class II obesity with BMI of 37.2 ? Weight loss advised 5. Depression ? Patient is on Wellbutrin resume 6. Hypokalemia ? Corrected per protocol 7. DVT prophylaxis ? SC Lovenox Time spent in the patient's overall evaluation,decision-making process, review of diagnostic data, adjustment of management, discussion with other providers, nursing nursing and ancillary staff involved in patient's care documentation, 40 Minutes Charges/Coding Visit Charges Inpatient E&M: 42796 Subs Hosp L2
[2022-12-19] MEDS: 0.9% Saline Lock 10 ML Syringe IV (08:28)
[2022-12-19] MEDS: Ondansetron 4 MG/2 ML Vial IV (08:29)
[2022-12-19 08:40] LABS: Absolute Lymphocyte Count 1.78 X10^3/uL (0.83-4.51); Absolute Neutrophil Count 8.2 X10^3/uL (2.0-7.7); Basophil# 0.03 X10^3/uL; Basophil% 0.3 % (0-1); Eosinophil# 0.01 X10^3/uL; Eosinophils% 0.1 % (0-5); Hematocrit 39.3 % (37-47); Hemoglobin 13.1 g/dL (12.0-15.0); Lymphocyte # 1.78 X10^3/ul (0.83-4.51); Lymphocyte % 15.9 % (19-41); Mean Corp Hgb Conc 33.3 g/dL (32-36); Mean Corpuscular Hgb 30.9 pg (27.0-32.0); Mean Corpuscular Volume 92.7 fL (81-99); Mean Platelet Vol. 10.7 fl (6.2-12.0); Monocyte# 1.04 X10^3/uL; Monocyte% 9.3 % (0-10); NRBC Flagged by Analyzer 0 % (0-5); Neutrophil # 8.17 X10^3/uL (2.7-7.7); Platelet Count 349 K/mm3 (150-450); RBC Distribution Width CV 14.4 % (11.6-14.6); RBC Distribution Width SD 48.3 fl (35.1-43.9); Red Blood Count 4.24 M/mm3 (4.2-5.4); White Blood Count 11.2 K/mm3 (4.4-11.0)
[2022-12-19 08:59] LABS: ALB/GLOB Ratio 0.8 RATIO (0.9-2.4); AST(SGOT) 85 U/L (15-37); Alanine Aminotransfer ALT/SGPT 168 U/L (13-56); Albumin, Serum 3.2 g/dL (3.2-5.0); Alkaline Phosphatase 138 U/L (45-117); Anion Gap 10 (5-15); BUN 8 mg/dL (7-18); Chloride 103 mmol/L (98-107); Creatinine, Serum 0.57 mg/dL (0.55-1.02); EST Glomerular Filtration Rate 120 mL/min (>60); Est Glom Filt Rate - Afr Amer 145 mL/min (>60); Estimated Creatinine Clearance 118.65 ml/min; Globulin 4.2 g/dL (2.2-4.2); Glucose 121 mg/dL (74-106); Potassium 3.4 mmol/L (3.5-5.1); Protein, Total 7.4 g/dL (6.4-8.2); Sodium Level 133 mmol/L (136-145)
[2022-12-19] MEDS: Pantoprazole Sodium 40 MG in 0.9% Normal Saline (100mL MB+) 100 ML 330 MG IV ×2 (10:52→22:22)
[2022-12-19] MEDS: Enoxaparin 40 MG/0.4 ML Syringe SC (10:52)
[2022-12-19] MEDS: 0.9% Normal Saline (1000mL) 1,000 ML 75 ML IV (12:05)
--- NOTE | 2022-12-19 12:05 | CASEMGMT ---
Social Work SW met with patient and patient's and introduced self and role as [facility] SW. Patient sleeping but patient's agreeable to speak with SW. SW reviewed therapy recommendations and provided SNF list to inquire about preferences. Patient's reports having family supports that can assist at home but will review the list with patient. SW to check back in when able. Plan: [facility] MURRAY, FAY
[2022-12-19] MEDS: Potassium Chloride 10mEq/100mL 10 MEQ/100 ML IV.SOLN. 100 MEQ IV BOLUS ×3 (12:06→17:19)
[2022-12-19] MEDS: Mirtazapine 15 MG Tablet 7.5 MG PO ×2 (12:47→22:23)
[2022-12-19] MEDS: Cholecalciferol (Vit D3) 125 MCG CAPSULE (5,000 UNITS) PO (12:48)
[2022-12-19] MEDS: VILAZODONE HYDROCHLORIDE 10 MG TABLET PO (12:48)
[2022-12-19] MEDS: buPROPion (XL) 300 MG TABLET.XL PO (12:48)
--- NOTE | 2022-12-19 13:24 | CASEMGMT ---
Social Work SW met with patient and patient's significant other and reintroduced self and role. Patient alert and oriented and agreeable to conversation regarding d/c plan. Patient reports her SNF preference is [facility] and does not have a second choice at this time. SW reviewed referral process; patient agreeable to referral being sent. Patient's significant other reports family can assist with transportation dependent on patient's ability to get in a car otherwise transportation will need to be arranged. SW to continue to assist with d/c needs. [facility] Plan: [facility] pending acceptance and precert Jacqueline Jensen MSW, FAY
[2022-12-19] MEDS: Ensure Clear 120 ML Liquid PO (15:01)
[2022-12-19] MEDS: Potassium Chloride 10mEq/100mL 10 MEQ/100 ML IV.SOLN. 60 MEQ IV BOLUS (22:23)
[2022-12-20 00:06] LABS: CMV by PCR Negative (Negative); EBV Acute VCA IgM < 36.0 U/mL (0.0-35.9); EBV Early Antigen IgG <9.0 U/mL (0.0-8.9)
[2022-12-20] MEDS: 0.9% Normal Saline (1000mL) 1,000 ML 75 ML IV ×2 (04:00→15:57)
[2022-12-20 05:02] VITALS: BP 142/91; PULSE 95; RESP 16; TEMP 36.8; O2SAT 100
[2022-12-20 06:04] LABS: Absolute Neutrophil Count 8.4 X10^3/uL (2.0-7.7); Basophil# 0.04 X10^3/uL; Basophil% 0.3 % (0-1); Eosinophil# 0.03 X10^3/uL; Eosinophils% 0.3 % (0-5); Hematocrit 36.1 % (37-47); Hemoglobin 12.4 g/dL (12.0-15.0); Lymphocyte % 19.4 % (19-41); Mean Corp Hgb Conc 34.3 g/dL (32-36); Mean Corpuscular Hgb 31.7 pg (27.0-32.0); Mean Corpuscular Volume 92.3 fL (81-99); Mean Platelet Vol. 11.1 fl (6.2-12.0); Monocyte# 0.98 X10^3/uL; Monocyte% 8.2 % (0-10); NRBC Flagged by Analyzer 0.2 % (0-5); Neutrophil % 70.7 % (47-70); Platelet Count 342 K/mm3 (150-450); RBC Distribution Width CV 14.7 % (11.6-14.6); RBC Distribution Width SD 49.3 fl (35.1-43.9); Red Blood Count 3.91 M/mm3 (4.2-5.4); White Blood Count 11.9 K/mm3 (4.4-11.0)
[2022-12-20] MEDS: Metoclopramide 5 MG TABLET PO ×3 (06:11→15:53)
[2022-12-20 07:08] LABS: ALB/GLOB Ratio 0.8 RATIO (0.9-2.4); AST(SGOT) 76 U/L (15-37); Alanine Aminotransfer ALT/SGPT 168 U/L (13-56); Alkaline Phosphatase 128 U/L (45-117); Anion Gap 11 (5-15); BUN 8 mg/dL (7-18); BUN/Creat Ratio 15.2 RATIO (10-20); Calcium,Total 8.7 mg/dL (8.5-10.1); Chloride 106 mmol/L (98-107); Creatinine, Serum 0.52 mg/dL (0.55-1.02); EST Glomerular Filtration Rate 132 mL/min (>60); Est Glom Filt Rate - Afr Amer 160 mL/min (>60); Estimated Creatinine Clearance 130.06 ml/min; Globulin 3.9 g/dL (2.2-4.2); Glucose 125 mg/dL (74-106); Potassium 3.6 mmol/L (3.5-5.1); Protein, Total 6.9 g/dL (6.4-8.2); Sodium Level 135 mmol/L (136-145)
--- NOTE | 2022-12-20 08:21 | PN.HOSP_ITS ---
Reason for Visit Reason for Visit: Diagnoses Other specified diseases of gallbladder (12/16/22) Nausea with vomiting, unspecified (12/16/22) Other specified abnormal findings of blood chemistry (12/16/22) Subjective Subjective Seen remains significantly flat with regards to affect. States she was unable to keep any food down the day prior. Plan is to advance diet as tolerated Objective Data Objective Data Vital Signs: Vital Signs Temp Pulse Resp BP Pulse Ox O2 Del Method 98.3 F 95 16 142/91 H 100 Room Air 12/20/22 05:02 12/20/22 05:02 12/20/22 05:02 12/20/22 05:02 12/20/22 05:02 12/20/22 05:02 Oxygen Delivery Method Room Air Weight: 107.8 kg Body Mass Index (BMI) 37.2 Intake & Output: Intake and Output for Last 24 Hours 12/18/22 12/19/22 12/20/22 23:59 23:59 23:59 Intake Total 2166.67 / 2166.67 2491.67 / 2491.67 1100 / 1100 Output Total 0 / 0 1000 / 1000 500 / 500 Balance 2166.67 / 2166.67 1491.67 / 1491.67 600 / 600 Medical Nutrition Assessment Dietitian: Malnutrition Criteria Met Start: 12/16/22 11:20 Freq: Status: Active Protocol: Document 12/16/22 11:21 RMA (Rec: 12/16/22 11:21 RMA [id number]) Nutrition Malnutrition Evidence of Malnutrition Exists Yes Malnutrition (severe): Acute Illness/Injury Evidenced By Suboptimal Energy Intake ( Severe),Weight Loss (Severe) Intake Problem Inadequate Oral Intake Etiology related to difficulty chewing Signs/Symptoms as evidenced by edentulous state and unintended weight loss~22% x 3 months Status Active Problem Clinical Problem Acute Disease or Injury Related Malnutrition Etiology Severe protein-calorie malnutrition in the context of acute condition related to inability to take adequate PO, chew difficulty/edentulous state and altered GI function/ intractable nausea and vomiting Signs/Symptoms as evidenced by ~22% unintentional weight loss x 3 months and PO meeting less than 50% estimated nutrition needs x past 3 months following full mouth dental extraction Status Active Problem Recommendation Dietitian Recommendations/Changes Recommend advance diet as tolerated to fat-restricted as needed due to cholecystitis; pt will need soft foods in addition to full liquid diet until dental yarsani is complete. Add 240mL ensure clear TID as diet advanced from NPO; pt dislikes regular ensure. Additional ONS as pt willing and able to tolerate with advancement of diet. Lab / Micro Data 12/20/22 05:40 12/20/22 05:40 Labs: Laboratory Results - last 24 hr 12/16/22 05:54: CMV DNA Qual PCR Negative, EBV Capsid Ag IgM Ab < 36.0, EBV Early Antigen IgG <9.0 12/19/22 08:18: WBC 11.2 H, RBC 4.24, Hgb 13.1, Hct 39.3, MCV 92.7, MCH 30.9, MCHC 33.3, RDW Std Deviation 48.3 H, RDW Coeff of Odalys 14.4, Plt Count 349, MPV 10.7, Immature Gran % (Auto) 1.400 H, Neut % (Auto) 73.0 H, Lymph % (Auto) 15.9 L, [place] % (Auto) 9.3, Eos % (Auto) 0.1, Baso % (Auto) 0.3, Absolute Neuts (auto) 8.2 H, Absolute Lymphs (auto) 1.78, Nucleated RBC % 0, Sodium 133 L, Potassium 3.4 L, Chloride 103, Carbon Dioxide 20.0 L, Anion Gap 10, BUN 8, Creatinine 0.57, Estim Creat Clear Calc 118.65, Est GFR (MDRD) Af Amer 145, Est GFR (MDRD) Non-Af 120, BUN/Creatinine Ratio 14.0, Glucose 121 H, Calcium 9.0, Total [place] bin 0.70, AST 85 H, ALT 168 H, Alkaline Phosphatase 138 H, Total Protein 7.4, Albumin 3.2, Globulin 4.2, Albumin/Globulin Ratio 0.8 L 12/20/22 05:40: WBC 11.9 H, RBC 3.91 L, Hgb 12.4, Hct 36.1 L, MCV 92.3, MCH 31.7, MCHC 34.3, RDW Std Deviation 49.3 H, RDW Coeff of Odalys 14.7 H, Plt Count 342, MPV 11.1, Immature Gran % (Auto) 1.100 H, Neut % (Auto) 70.7 H, Lymph % (Auto) 19.4, [place] % (Auto) 8.2, Eos % (Auto) 0.3, Baso % (Auto) 0.3, Absolute Neuts (auto) 8.4 H, Absolute Lymphs (auto) 2.30, Nucleated RBC % 0.2, Sodium 135 L, Potassium 3.6, Chloride 106, Carbon Dioxide 18.0 L, Anion Gap 11, BUN 8, Creatinine 0.52 L, Estim Creat Clear Calc 130.06, Est GFR (MDRD) Af Amer 160, Est GFR (MDRD) Non-Af 132, BUN/Creatinine Ratio 15.2, Glucose 125 H, Calcium 8.7, Total Bilirubin 0.80, AST 76 H, ALT 168 H, Alkaline Phosphatase 128 H, Total Protein 6.9, Albumin 3.0 L, Globulin 3.9, Albumin/Globulin Ratio 0.8 L Physical Exam Narrative GENERAL: cooperative HEENT: Atraumatic; normocephalic EYES; Anicteric, Normal Conjunctiva NECK; supple, normal thyroid, RESPIRATORY: Diminished to auscultation CARDIOVASCULAR: Regular S1 S2, GI: soft, normoactive bowel sounds, : No Renal angle tenderness; EXTREMITIES: No edema, no clubbing, MUSCULOSKELETAL: no muscle wasting NEURO: Awake; no lateralizing signs. SKIN: No Rash PSYCH; Flat affect Assessment & Plan Assessment/Plan (1) Intractable nausea and vomiting: (2) Abnormal liver function tests: PLAN: Plan Patient is a 47-year-old lady who presented with intractable nausea and vomiting 1. Intractable nausea and vomiting ? Patient gastric emptying studies came back consistent with gastroparesis. Seen in consultation by GI. Patient underwent EGD which demonstrated normal esophagus, acute gastritis and erythematous duodenopathy biopsied. Subsequently started on PPI and metoclopramide ? 12/20/2022 symptoms improving 2. Central vertigo ? Symptomatic treatment 3. Abnormal gallbladder ultrasound ? MRCP did not show evidence of acute cholecystitis. Patient seen by general surgery 4. Class II obesity with BMI of 37.2 ? Weight loss advised 5. Depression ? Patient is on Wellbutrin resume 6. Hypokalemia ? Corrected per protocol 7. DVT prophylaxis ? SC Lovenox 8. Physical deconditioning - Requested for PT OT eval and manager social services to assist with discharge planning Time spent in the patient's overall evaluation,decision-making process, review of diagnostic data, adjustment of management, discussion with other providers, nursing nursing and ancillary staff involved in patient's care documentation, 35 Minutes Charges/Coding Visit Charges Inpatient E&M: 99709 Subs Hosp L2
[2022-12-20] MEDS: Folic Acid 1 MG Tablet 2 MG PO (08:28)
[2022-12-20 09:47] VITALS: BP 153/97; PULSE 104; RESP 16; TEMP 36.9; O2SAT 99
[2022-12-20] MEDS: Ensure Clear 120 ML Liquid PO (09:54)
[2022-12-20] MEDS: Pantoprazole Sodium 40 MG in 0.9% Normal Saline (100mL MB+) 100 ML 330 MG IV ×2 (09:54→21:26)
[2022-12-20] MEDS: buPROPion (XL) 300 MG TABLET.XL PO (09:55)
[2022-12-20] MEDS: Cholecalciferol (Vit D3) 125 MCG CAPSULE (5,000 UNITS) PO (09:55)
[2022-12-20] MEDS: VILAZODONE HYDROCHLORIDE 10 MG TABLET PO (09:55)
[2022-12-20] MEDS: Enoxaparin 40 MG/0.4 ML Syringe SC (09:55)
[2022-12-20] MEDS: Mirtazapine 15 MG Tablet 7.5 MG PO ×2 (09:55→21:26)
[2022-12-20 10:07] LABS: Methylmalonic Acid Bld 89 nmol/L (0-378)
[2022-12-20 15:45] VITALS: BP 167/97; PULSE 111; RESP 16; TEMP 36.7; O2SAT 98
[2022-12-20 17:15] VITALS: BP 167/101; PULSE 102; RESP 16; TEMP 36.6; O2SAT 97
[2022-12-20] MEDS: Labetalol (Prefilled) 20 MG/4 ML 10 MG IV (17:23)
[2022-12-20 18:31] VITALS: BP 161/106; PULSE 86
[2022-12-20 21:21] VITALS: BP 149/97; PULSE 86; RESP 16; TEMP 36.7; O2SAT 98
[2022-12-20 22:40] LABS: Mucous, Urine 0 SEEN /hpf (<or=2+)
[2022-12-20 22:41] LABS: Bacteria 0 SEEN /hpf (None Seen)
[2022-12-20 22:42] LABS: Color, Urine Yellow (Yellow); Glucose, Dipstick Normal (Normal); Leukocyte Esterase-Dipstick 25 /ul (Negative); Nitrite-Dipstick Negative (Negative); Occult Blood-Urine 150 /ul (Negative); Protein-Dipstick 15 mg/dl (Negative); Urine Bilirubin Dipstick Negative (Negative); Urine Urobilinogen 1 mg/dl (Normal)
[2022-12-20 22:48] LABS: Ketone-Dipstick 150 mg/dl (Negative)
[2022-12-20 22:52] LABS: Red Blood Cells-Urine 10-25 SEEN /hpf (0-5); Squamous Epithelial Cells - UA 0-5 SEEN /hpf (5-10); White Blood Cells 0-5 SEEN /hpf (0-5)
[2022-12-20 22:53] LABS: Urine Clarity Sl Cldy (Clear)
[2022-12-21 00:06] LABS: Albumin 3.1 g/dL (2.9-4.4); Alpha-1-Globulins 0.2 g/dL (0.0-0.4); Alpha-2-Globulins 0.9 g/dL (0.4-1.0); Anti-Smooth Muscle ABS 8 Units (0-19); Cytoplasmic Ab (C-ANCA) <1:20 titer (Neg:<1:20); Deamidated Gliadin IgA 5 units (0-19); Deamidated Gliadin IgG 2 units (0-19); Endomysial Antibody IgA Negative (Negative); Gamma Globulin 0.7 g/dL (0.4-1.8); Immunoglobulin A 188 mg/dL (87-352); Immunoglobulin E 15 IU/mL (6-495); Immunoglobulin G 887 mg/dL (586-1602); Immunoglobulin M 37 mg/dL (26-217); Perinuclear Ab (P-ANCA) <1:20 titer (Neg:<1:20); t-Transglutaminase IgA <2 U/mL (0-3)
[2022-12-21 03:19] VITALS: BP 168/107; PULSE 104; RESP 16; TEMP 36.6; O2SAT 98
[2022-12-21] MEDS: Metoclopramide 5 MG TABLET PO ×3 (05:40→16:04)
[2022-12-21] MEDS: 0.9% Normal Saline (1000mL) 1,000 ML 75 ML IV (05:40)
[2022-12-21 06:00] LABS: Absolute Lymphocyte Count 2.28 X10^3/uL (0.83-4.51); Absolute Neutrophil Count 8.1 X10^3/uL (2.0-7.7); Basophil# 0.08 X10^3/uL; Basophil% 0.7 % (0-1); Eosinophil# 0.09 X10^3/uL; Eosinophils% 0.8 % (0-5); Hemoglobin 12.7 g/dL (12.0-15.0); Lymphocyte # 2.28 X10^3/ul (0.83-4.51); Lymphocyte % 19.7 % (19-41); Mean Corp Hgb Conc 33.4 g/dL (32-36); Mean Corpuscular Hgb 31.4 pg (27.0-32.0); Mean Corpuscular Volume 93.8 fL (81-99); Mean Platelet Vol. 10.5 fl (6.2-12.0); Monocyte# 0.89 X10^3/uL; Monocyte% 7.7 % (0-10); NRBC Flagged by Analyzer 0 % (0-5); Neutrophil # 8.07 X10^3/uL (2.7-7.7); Neutrophil % 69.7 % (47-70); Platelet Count 345 K/mm3 (150-450); RBC Distribution Width CV 14.6 % (11.6-14.6); RBC Distribution Width SD 50.4 fl (35.1-43.9); Red Blood Count 4.05 M/mm3 (4.2-5.4); White Blood Count 11.6 K/mm3 (4.4-11.0)
[2022-12-21 06:37] LABS: ALB/GLOB Ratio 0.8 RATIO (0.9-2.4); AST(SGOT) 70 U/L (15-37); Alanine Aminotransfer ALT/SGPT 179 U/L (13-56); Alkaline Phosphatase 138 U/L (45-117); Anion Gap 9 (5-15); BUN 9 mg/dL (7-18); Calcium,Total 8.9 mg/dL (8.5-10.1); Chloride 105 mmol/L (98-107); EST Glomerular Filtration Rate 140 mL/min (>60); Est Glom Filt Rate - Afr Amer 169 mL/min (>60); Estimated Creatinine Clearance 135.26 ml/min; Glucose 137 mg/dL (74-106); Potassium 3.3 mmol/L (3.5-5.1); Sodium Level 135 mmol/L (136-145)
[2022-12-21 07:26] VITALS: BP 164/110; PULSE 100; RESP 18; TEMP 37.1; O2SAT 100
--- NOTE | 2022-12-21 08:55 | PCM.PN.HOSP ---
Reason for Visit Reason for Visit: Diagnoses Other specified diseases of gallbladder (12/16/22) Nausea with vomiting, unspecified (12/16/22) Other specified abnormal findings of blood chemistry (12/16/22) Subjective Subjective Patient seen, still complains of inability to ambulate. Held discussion with patient's who did inform me about patient condition including experiencing numbness from the neck down as well as difficulty with ambulation. Patient was apparently being worked down for suspected MS as outpatient. Consult subsequently placed to telemetry neurology ordered MRI of the lumbosacral and thoracic spine Objective Data Objective Data Vital Signs: Vital Signs Temp Pulse Resp BP Pulse Ox O2 Del Method 98.7 F 100 18 164/110 H 100 Room Air 12/21/22 07:26 12/21/22 07:26 12/21/22 07:26 12/21/22 07:26 12/21/22 07:26 12/21/22 07:26 Oxygen Delivery Method Room Air Weight: 107.8 kg Body Mass Index (BMI) 37.2 Intake & Output: Intake and Output for Last 24 Hours 12/19/22 12/20/22 12/21/22 23:59 23:59 23:59 Intake Total 2491.67 / 2491.67 2216.25 / 2456.25 1340 / 1340 Output Total 1000 / 1000 800 / 1300 1000 / 1000 Balance 1491.67 / 1491.67 1416.25 / 1156.25 340 / 340 Medical Nutrition Assessment Dietitian: Malnutrition Criteria Met Start: 12/16/22 11:20 Freq: Status: Active Protocol: Document 12/16/22 11:21 RMA (Rec: 12/16/22 11:21 RMA [id number]) Nutrition Malnutrition Evidence of Malnutrition Exists Yes Malnutrition (severe): Acute Illness/Injury Evidenced By Suboptimal Energy Intake ( Severe),Weight Loss (Severe) Intake Problem Inadequate Oral Intake Etiology related to difficulty chewing Signs/Symptoms as evidenced by edentulous state and unintended weight loss~22% x 3 months Status Active Problem Clinical Problem Acute Disease or Injury Related Malnutrition Etiology Severe protein-calorie malnutrition in the context of acute condition related to inability to take adequate PO, chew difficulty/edentulous state and altered GI function/ intractable nausea and vomiting Signs/Symptoms as evidenced by ~22% unintentional weight loss x 3 months and PO meeting less than 50% estimated nutrition needs x past 3 months following full mouth dental extraction Status Active Problem Recommendation Dietitian Recommendations/Changes Recommend advance diet as tolerated to fat-restricted as needed due to cholecystitis; pt will need soft foods in addition to full liquid diet until dental rastafarian is complete. Add 240mL ensure clear TID as diet advanced from NPO; pt dislikes regular ensure. Additional ONS as pt willing and able to tolerate with advancement of diet. Lab / Micro Data 12/21/22 05:34 12/21/22 05:34 Labs: Laboratory Results - last 24 hr 12/16/22 09:24: Methylmalonic Acid 89 12/17/22 05:22: Total Protein (PEP) 6.0, Globulin 2.9, IgG 887, IgA 188, IgM 37, IgE 15, Immunofixation Screen Comment, Albumin (KRIS) 3.1, Albumin/Globulin (KRIS) 1.1, Jjlld-2-Glnfcaodp KRIS 0.2, Evhcu-7-Bnhoraqau KRIS 0.9, Beta-Globulins (KRIS) 1.0, Gamma Globulins (KRIS) 0.7, KRIS Comments Comment, c-ANCA Antibody <1:20, Atypical p-ANCA <1:20, p-ANCA Antibody <1:20, Anti-Smooth Muscle Ab 8, Endomysial IgA Ab Negative, Tiss Transglutamin IgG 20 H, Tiss Transglutamin IgA <2, Anti-Gliadin IgG Ab 2, Anti-Gliadin IgA Ab 5 12/20/22 22:30: Urine Color Yellow, Urine Clarity Sl Cldy, Urine pH 6.0, Ur Specific [place] 1.020, Urine Protein 15 H, Urine Glucose (UA) Normal, Urine Ketones 150 A*, Urine Occult Blood 150 H, Urine Nitrite Negative, Urine Bilirubin Negative, Urine Urobilinogen 1 H, Ur Leukocyte Esterase 25 H, Urine RBC 10-25 SEEN, Urine WBC 0-5 SEEN, Ur Squamous Epith Cells 0-5 SEEN, Urine Bacteria 0 SEEN, Urine Mucus 0 SEEN 12/21/22 05:34: WBC 11.6 H, RBC 4.05 L, Hgb 12.7, Hct 38.0, MCV 93.8, MCH 31.4, MCHC 33.4, RDW Std Deviation 50.4 H, RDW Coeff of Odalys 14.6, Plt Count 345, MPV 10.5, Immature Gran % (Auto) 1.400 H, Neut % (Auto) 69.7, Lymph % (Auto) 19.7, [place] % (Auto) 7.7, Eos % (Auto) 0.8, Baso % (Auto) 0.7, Absolute Neuts (auto) 8.1 H, Absolute Lymphs (auto) 2.28, Nucleated RBC % 0, Sodium 135 L, Potassium 3.3 L, Chloride 105, Carbon Dioxide 21.0, Anion Gap 9, BUN 9, Creatinine 0.50 L, Estim Creat Clear Calc 135.26, Est GFR (MDRD) Af Amer 169, Est GFR (MDRD) Non-Af 140, BUN/Creatinine Ratio 18.0, Glucose 137 H, Calcium 8.9, Total Bilirubin 0.80, AST 70 H, ALT 179 H, Alkaline Phosphatase 138 H, Total Protein 7.0, Albumin 3.0 L, Globulin 4.0, Albumin/Globulin Ratio 0.8 L Physical Exam Narrative GENERAL: cooperative HEENT: Atraumatic; normocephalic EYES; Anicteric, Normal Conjunctiva NECK; supple, normal thyroid, RESPIRATORY: Diminished to auscultation CARDIOVASCULAR: Regular S1 S2, GI: soft, normoactive bowel sounds, : No Renal angle tenderness; EXTREMITIES: No edema, no clubbing, MUSCULOSKELETAL: no muscle wasting NEURO: Awake; no lateralizing signs. SKIN: No Rash PSYCH; Flat affect Assessment & Plan Assessment/Plan (1) Intractable nausea and vomiting: (2) Abnormal liver function tests: PLAN: Plan Patient is a 47-year-old lady who presented with intractable nausea and vomiting 1. Intractable nausea and vomiting ? Patient gastric emptying studies came back consistent with gastroparesis. Seen in consultation by GI. Patient underwent EGD which demonstrated normal esophagus, acute gastritis and erythematous duodenopathy biopsied. Subsequently started on PPI and metoclopramide ? 12/20/2022 symptoms improving 2. Central vertigo ? Symptomatic treatment 3. Abnormal gallbladder ultrasound ? MRCP did not show evidence of acute cholecystitis. Patient seen by general surgery 4. Paresthesias ? 12/22/2019 patient seen, still complains of inability to ambulate. Held discussion with patient's who did inform me about patient condition including experiencing numbness from the neck down as well as difficulty with ambulation. Patient was apparently being worked down for suspected MS as outpatient. Consult subsequently placed to telemetry neurology ordered MRI of the lumbosacral and thoracic spine 5. Depression ? Patient is on Wellbutrin resume 6. Hypokalemia ? Corrected per protocol 7. DVT prophylaxis ? SC Lovenox 8. Class II obesity with BMI of 37.2 ? Weight loss advised 9. Physical deconditioning - Requested for PT OT eval and nephrology social worker to assist with discharge planning 10. severe malnutrition -in context of acute condition r/t inability to take adequate PO, chewing difficulty/edentulous state and altered GI function/intractable N/V, as evidenced by ~22% unintentional weight loss x 3 months and PO meeting < 50% estimated nutritional needs x past 3 months following full mouth dental extraction. Recommend advance diet as tolerated to fat-restricted as needed due to cholecystitis; pt will need soft foods in addition to full liquid diet until dental rastafarian is complete. Add 240 ml ensure clear TID as diet advanced from NPO; pt dislikes regular ensure. Additional ONS as pt willing and able to tolerate with advancement of diet. Time spent in the patient's overall evaluation,decision-making process, review of diagnostic data, adjustment of management, discussion with other providers, nursing nursing and ancillary staff involved in patient's care documentation, 35 Minutes Charges/Coding Visit Charges Inpatient E&M: 91899 Subs Hosp L2
--- NOTE | 2022-12-21 09:11 | CASEMGMT ---
Discharge Planning Patient has been accepted by [facility]. Updates sent and asked for precert to be started. Tricia Fagan, Discharge Planning Asst.
[2022-12-21] MEDS: Ondansetron 4 MG/2 ML Vial IV (09:16)
[2022-12-21] MEDS: Mirtazapine 15 MG Tablet 7.5 MG PO ×2 (09:16→21:10)
[2022-12-21] MEDS: Folic Acid 1 MG Tablet 2 MG PO (09:16)
[2022-12-21] MEDS: Enoxaparin 40 MG/0.4 ML Syringe SC (09:17)
[2022-12-21] MEDS: VILAZODONE HYDROCHLORIDE 10 MG TABLET PO (09:17)
[2022-12-21] MEDS: Cholecalciferol (Vit D3) 125 MCG CAPSULE (5,000 UNITS) PO (09:17)
[2022-12-21] MEDS: Pantoprazole Sodium 40 MG in 0.9% Normal Saline (100mL MB+) 100 ML 330 MG IV ×2 (09:17→21:09)
[2022-12-21] MEDS: buPROPion (XL) 300 MG TABLET.XL PO (09:17)
--- NOTE | 2022-12-21 13:19 | MRI_ITS ---
EXAM: MR CERVICAL SPINE WITHOUT AND WITH INTRAVENOUS CONTRAST CLINICAL INDICATION: Paresthesias and weakness rule out MS TECHNIQUE: Multiplanar and multisequence MR images of the cervical spine without and with intravenous contrast were performed. CONTRAST: clariscna 20ml COMPARISON: No relevant prior studies available. FINDINGS: VERTEBRAE: No significant abnormality. Normal vertebral bodies and posterior elements. Normal alignment. Normal craniocervical junction and cervicothoracic junction. No spondylolisthesis. There is preservation of the normal cervical lordosis. SPINAL CORD: There is no spinal cord signal abnormality or pathologic intramedullary enhancement and there is no mass effect upon the spinal cord. SOFT TISSUES: No significant abnormality. No prevertebral soft tissue swelling. LYMPH NODES: No significant abnormality. There is no cervical adenopathy. DISCS/SPINAL CANAL/NEURAL FORAMINA: C2-C3: No significant abnormality. Normal disc height and morphology. Normal spinal canal. Normal neuroforamina. C3-C4: No significant abnormality. Normal disc height and morphology. Normal spinal canal. Normal neuroforamina. C4-C5: No significant abnormality. Normal disc height and morphology. Normal spinal canal. Normal neuroforamina. C5-C6: Right central disc herniation and mild bilateral facet and uncovertebral joint arthrosis. Mild spinal canal stenosis. No significant neural foraminal narrowing. C6-C7: Small central disc herniation and mild bilateral facet arthrosis. Mild spinal canal stenosis. No neural foraminal narrowing. C7-T1: No significant abnormality. Normal disc height and morphology. Normal spinal canal. Normal neuroforamina. MRI/Spine Cervical W/WO Contrast IMPRESSION: 1. There is no spinal cord signal abnormality or pathologic intramedullary enhancement. Therefore, there is no spinal cord evidence of multiple sclerosis or other forms of demyelination. 2. Mild degenerative changes particularly at C5-C6 and C6-C7. Electronically Signed: Matthew Donnelly DO at 20:24 EDT ,
--- NOTE | 2022-12-21 13:19 | MRI_ITS ---
EXAM: MR HEAD WITHOUT AND WITH INTRAVENOUS CONTRAST CLINICAL INDICATION: Paresthesias and weakness rule out MS TECHNIQUE: Multiplanar and multisequence MR images of the brain were obtained without and with intravenous contrast. CONTRAST: clariscan 20ml COMPARISON: MRI cervical spine on the same date. FINDINGS: BRAIN AND EXTRA-AXIAL SPACES: There is a left anterior paramedian frontal lobe developmental venous anomaly for which no follow-up is indicated. There are multiple foci of subcortical and periventricular T2 and T2 FLAIR hyperintensity within the white matter of the bilateral cerebral hemispheres without associated enhancement. Posterior medial thalamic T2 FLAIR hyperintensity. Apparent hyperintensity on diffusion trace without low ADC values indicating T2 shine through. No hemorrhage or pathologic extra-axial fluid. No evidence of acute infarct. No intracranial mass or mass effect. There is preservation of the ribera/white matter interface. Posterior fossa structures are unremarkable. No hydrocephalus. Basal cisterns are patent. No pathologic mineralization. SELLA: Partially empty sella turcica is nonspecific. AUDITORY SYSTEM: No significant abnormality. The internal auditory canals are patent. BONES/JOINTS: No significant abnormality. No discrete lytic or blastic abnormalities. SINUSES: Normal as visualized. Clear. MASTOID AIR CELLS: Normal as visualized. Clear. ORBITS: Normal as visualized. Both globes, extraocular muscles, optic nerves and retrobulbar fat appear unremarkable. VASCULATURE: Vascular flow voids are maintained.. MRI/Brain W/WO Contrast IMPRESSION: 1. White matter signal abnormalities are nonspecific. These may be secondary to primary demyelination although there is no enhancement in the lesions to indicate active demyelination and confirm the diagnosis. Otherwise, consider sequela of infection/inflammation, migraine related changes, or perhaps precocious microvascular ischemic changes. 2. Subtle posterior medial thalamic signal abnormality may also be secondary to demyelination. Also, considering the appropriate clinical setting Wernicke encephalopathy which is unlikely given history provided. 3. 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 Electronically Signed: Matthew Donnelly DO at 20:22 EDT ,
[2022-12-21 15:03] VITALS: BP 153/96; PULSE 103; RESP 18; TEMP 36.9; O2SAT 96
[2022-12-21] MEDS: LORazepam 1 MG Tablet PO (16:04)
[2022-12-21 21:14] VITALS: BP 149/92; PULSE 93; RESP 16; TEMP 36.6; O2SAT 98
--- NOTE | 2022-12-22 | CYSPIN_PTH ---
PATIENT: WIL CAMPBELL LOC: [facility] U#:[id number] AGE/SX: 47/F ROOM: [facility] RE12/16/[address]: Dr. Talon Bueno DO : 1975 BED: 1 DIS: 12/24/2022 SPEC #: [id number] RECD: 12/23/22 09:13 STATUS: GALLO REAnoop #: [id number] STEPHY: 12/22/22 00:[address]: Talon Bueno DEPT: CYTOLOGY RECD BY: Fady Morrison ENTERED: 12/23/22 09:14 SP TYPE: CYSPIN FL OTHR DR: MD Dr. Francisco Javier Corona MD Dr. Michael Bortz, MD Dr. Megan Oberhauser, DO Dr. Paige Pierce, MD Tissues: Cerebrospinal Fluid Procedures: Pap Stain (control) Special Stain Group II Cytospin Fluid HEADER OPERATION: Not noted PRE-OP DIAGNOSIS: Intractable nausea and vomiting TISSUE SUBMITTED: Cerebrospinal fluid for cytology DIAGNOSIS CYTOLOGY Cerebrospinal fluid for cytology (cytospin): Virtually acellular specimen. Negative for malignant cells. AM:renita 12/23/2022 CYTOLOGY STUDY Slides are reviewed. CYTOLOGY GROSS Received is 1 ml of clear colorless fluid labeled with the patient's name and and designated per the requisition as CSF. Submitted for cytology preparation. / renita 12/22/2022 TC:5 CPT: 56974
[2022-12-22] MEDS: 0.9% Normal Saline (1000mL) 1,000 ML 75 ML IV ×2 (00:03→11:48)
[2022-12-22 04:52] VITALS: BP 153/98; PULSE 96; RESP 14; TEMP 36.8; O2SAT 98
[2022-12-22] MEDS: Metoclopramide 5 MG TABLET PO ×3 (06:07→16:56)
[2022-12-22 07:05] LABS: Absolute Lymphocyte Count 1.88 X10^3/uL (0.83-4.51); Absolute Neutrophil Count 8.5 X10^3/uL (2.0-7.7); Basophil# 0.07 X10^3/uL; Basophil% 0.6 % (0-1); Eosinophil# 0.18 X10^3/uL; Eosinophils% 1.6 % (0-5); Hematocrit 39.1 % (37-47); Hemoglobin 13.4 g/dL (12.0-15.0); Lymphocyte # 1.88 X10^3/ul (0.83-4.51); Lymphocyte % 16.3 % (19-41); Mean Corp Hgb Conc 34.3 g/dL (32-36); Mean Corpuscular Hgb 31.5 pg (27.0-32.0); Mean Platelet Vol. 10.6 fl (6.2-12.0); Monocyte# 0.76 X10^3/uL; Monocyte% 6.6 % (0-10); NRBC Flagged by Analyzer 0 % (0-5); Neutrophil % 73.7 % (47-70); Platelet Count 327 K/mm3 (150-450); RBC Distribution Width CV 14.7 % (11.6-14.6); RBC Distribution Width SD 49.6 fl (35.1-43.9); Red Blood Count 4.25 M/mm3 (4.2-5.4); White Blood Count 11.5 K/mm3 (4.4-11.0)
[2022-12-22 07:44] LABS: ALB/GLOB Ratio 0.7 RATIO (0.9-2.4); AST(SGOT) 64 U/L (15-37); Alanine Aminotransfer ALT/SGPT 171 U/L (13-56); Albumin, Serum 2.9 g/dL (3.2-5.0); Alkaline Phosphatase 143 U/L (45-117); Anion Gap 9 (5-15); BUN 9 mg/dL (7-18); BUN/Creat Ratio 17.3 RATIO (10-20); Chloride 105 mmol/L (98-107); Creatinine, Serum 0.52 mg/dL (0.55-1.02); EST Glomerular Filtration Rate 134 mL/min (>60); Est Glom Filt Rate - Afr Amer 162 mL/min (>60); Estimated Creatinine Clearance 130.06 ml/min; Globulin 4.3 g/dL (2.2-4.2); Glucose 137 mg/dL (74-106); Protein, Total 7.2 g/dL (6.4-8.2); Sodium Level 136 mmol/L (136-145)
--- NOTE | 2022-12-22 08:54 | PCM.PN.HOSP ---
Reason for Visit Reason for Visit: Diagnoses Other specified diseases of gallbladder (12/16/22) Nausea with vomiting, unspecified (12/16/22) Other specified abnormal findings of blood chemistry (12/16/22) Subjective Subjective 12/22/2022. Patient underwent MRI of the brain as well as cervical spine results reviewed. Subsequently ordered West Nile titer, Lyme titer HIV and ordered lumbar puncture as recommended by neurology Objective Data Objective Data Vital Signs: Vital Signs Temp Pulse Resp BP Pulse Ox O2 Del Method 98.3 F 96 14 153/98 H 98 Room Air 12/22/22 04:52 12/22/22 04:52 12/22/22 04:52 12/22/22 04:52 12/22/22 04:52 12/22/22 05:00 Oxygen Delivery Method Room Air Weight: 107.8 kg Body Mass Index (BMI) 37.2 Intake & Output: Intake and Output for Last 24 Hours 12/20/22 12/21/22 12/22/22 23:59 23:59 23:59 Intake Total 2216.25 / 2456.25 2735.00 / 3135.00 600 / 600 Output Total 800 / 1300 2100 / 3050 1250 / 1250 Balance 1416.25 / 1156.25 635.00 / 85.00 -650 / -650 Medical Nutrition Assessment Dietitian: Malnutrition Criteria Met Start: 12/16/22 11:20 Freq: Status: Active Protocol: Document 12/16/22 11:21 RMA (Rec: 12/16/22 11:21 RMA [id number]) Nutrition Malnutrition Evidence of Malnutrition Exists Yes Malnutrition (severe): Acute Illness/Injury Evidenced By Suboptimal Energy Intake ( Severe),Weight Loss (Severe) Intake Problem Inadequate Oral Intake Etiology related to difficulty chewing Signs/Symptoms as evidenced by edentulous state and unintended weight loss~22% x 3 months Status Active Problem Clinical Problem Acute Disease or Injury Related Malnutrition Etiology Severe protein-calorie malnutrition in the context of acute condition related to inability to take adequate PO, chew difficulty/edentulous state and altered GI function/ intractable nausea and vomiting Signs/Symptoms as evidenced by ~22% unintentional weight loss x 3 months and PO meeting less than 50% estimated nutrition needs x past 3 months following full mouth dental extraction Status Active Problem Recommendation Dietitian Recommendations/Changes Recommend advance diet as tolerated to fat-restricted as needed due to cholecystitis; pt will need soft foods in addition to full liquid diet until dental samaritan is complete. Add 240mL ensure clear TID as diet advanced from NPO; pt dislikes regular ensure. Additional ONS as pt willing and able to tolerate with advancement of diet. Lab / Micro Data 12/22/22 06:50 12/22/22 06:50 Labs: Laboratory Results - last 24 hr 12/17/22 05:22: Total Protein (PEP) 6.0, Globulin 2.9, IgG 887, IgA 188, IgM 37, IgE 15, Immunofixation Screen Comment, Albumin (KRIS) 3.1, Albumin/Globulin (KRIS) 1.1, Psuxq-6-Gujvkglrb KRIS 0.2, Suhmi-4-Emeupkdlu KRIS 0.9, Beta-Globulins (KRIS) 1.0, Gamma Globulins (KRIS) 0.7, KRIS M-Inderjit , KRIS Comments Comment, c-ANCA Antibody <1:20, Atypical p-ANCA <1:20, p-ANCA Antibody <1:20, Anti-Smooth Muscle Ab 8, Endomysial IgA Ab Negative, Tiss Transglutamin IgG 20 H, Tiss Transglutamin IgA <2, Anti-Gliadin IgG Ab 2, Anti-Gliadin IgA Ab 5, Hepatitis A IgM Ab Cancelled, Hep Bs Antigen Cancelled, Hep B Core IgM Ab Cancelled, Hepatitis C Ab (EIA) Cancelled, Hep C Ab Comment Cancelled 12/22/22 06:50: WBC 11.5 H, RBC 4.25, Hgb 13.4, Hct 39.1, MCV 92.0, MCH 31.5, MCHC 34.3, RDW Std Deviation 49.6 H, RDW Coeff of Odalys 14.7 H, Plt Count 327, MPV 10.6, Immature Gran % (Auto) 1.200 H, Neut % (Auto) 73.7 H, Lymph % (Auto) 16.3 L, Waldo % (Auto) 6.6, Eos % (Auto) 1.6, Baso % (Auto) 0.6, Absolute Neuts (auto) 8.5 H, Absolute Lymphs (auto) 1.88, Nucleated RBC % 0, Sodium 136, Potassium 3.0 L, Chloride 105, Carbon Dioxide 22.0, Anion Gap 9, BUN 9, Creatinine 0.52 L, Estim Creat Clear Calc 130.06, Est GFR (MDRD) Af Amer 162, Est GFR (MDRD) Non-Af 134, BUN/Creatinine Ratio 17.3, Glucose 137 H, Calcium 9.0, Total Bilirubin 0.90, AST 64 H, ALT 171 H, Alkaline Phosphatase 143 H, Total Protein 7.2, Albumin 2.9 L, Globulin 4.3 H, Albumin/Globulin Ratio 0.7 L Radiography Diagnostic Testing: Radiology Impression Brain MRI 12/21/22 13:19 IMPRESSION: 1. White matter signal abnormalities are nonspecific. These may be secondary to primary demyelination although there is no enhancement in the lesions to indicate active demyelination and confirm the diagnosis. Otherwise, consider sequela of infection/inflammation, migraine related changes, or perhaps precocious microvascular ischemic changes. 2. Subtle posterior medial thalamic signal abnormality may also be secondary to demyelination. Also, considering the appropriate clinical setting Wernicke encephalopathy which is unlikely given history provided. 3. 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 Electronically Signed: Matthew Donnelly DO at 20:22 EDT , Cervical Spine MRI 12/21/22 13:19 IMPRESSION: 1. There is no spinal cord signal abnormality or pathologic intramedullary enhancement. Therefore, there is no spinal cord evidence of multiple sclerosis or other forms of demyelination. 2. Mild degenerative changes particularly at C5-C6 and C6-C7. Electronically Signed: Matthew Donnelly DO at 20:24 EDT , Physical Exam Narrative GENERAL: cooperative HEENT: Atraumatic; normocephalic EYES; Anicteric, Normal Conjunctiva NECK; supple, normal thyroid, RESPIRATORY: Diminished to auscultation CARDIOVASCULAR: Regular S1 S2, GI: soft, normoactive bowel sounds, : No Renal angle tenderness; EXTREMITIES: No edema, no clubbing, MUSCULOSKELETAL: no muscle wasting NEURO: Awake; no lateralizing signs. SKIN: No Rash PSYCH; Flat affect Assessment & Plan Assessment/Plan (1) Intractable nausea and vomiting: (2) Abnormal liver function tests: PLAN: Plan Patient is a 47-year-old lady who presented with intractable nausea and vomiting 1. Intractable nausea and vomiting ? Patient gastric emptying studies came back consistent with gastroparesis. Seen in consultation by GI. Patient underwent EGD which demonstrated normal esophagus, acute gastritis and erythematous duodenopathy biopsied. Subsequently started on PPI and metoclopramide ? 12/20/2022 symptoms improving 2. Central vertigo ? Symptomatic treatment 3. Abnormal gallbladder ultrasound ? MRCP did not show evidence of acute cholecystitis. Patient seen by general surgery 4. Paresthesias ? 12/22/2019 patient seen, still complains of inability to ambulate. Held discussion with patient's who did inform me about patient condition including experiencing numbness from the neck down as well as difficulty with ambulation. Patient was apparently being worked down for suspected MS as outpatient. Consult subsequently placed to telemetry neurology ordered MRI of the lumbosacral and thoracic spine -12/22/2022. Patient underwent MRI of the brain as well as cervical spine results reviewed. Subsequently ordered West Nile titer, Lyme titer HIV and ordered lumbar puncture as recommended by neurology 5. Depression ? Patient is on Wellbutrin resume 6. Hypokalemia ? Corrected per protocol 7. DVT prophylaxis ? SC Lovenox 8. Class II obesity with BMI of 37.2 ? Weight loss advised 9. Physical deconditioning - Requested for PT OT eval and director social service to assist with discharge planning 10. severe malnutrition -in context of acute condition r/t inability to take adequate PO, chewing difficulty/edentulous state and altered GI function/intractable N/V, as evidenced by ~22% unintentional weight loss x 3 months and PO meeting < 50% estimated nutritional needs x past 3 months following full mouth dental extraction. Recommend advance diet as tolerated to fat-restricted as needed due to cholecystitis; pt will need soft foods in addition to full liquid diet until dental samaritan is complete. Add 240 ml ensure clear TID as diet advanced from NPO; pt dislikes regular ensure. Additional ONS as pt willing and able to tolerate with advancement of diet. Time spent in the patient's overall evaluation,decision-making process, review of diagnostic data, adjustment of management, discussion with other providers, nursing nursing and ancillary staff involved in patient's care documentation, 35 Minutes Charges/Coding Visit Charges Inpatient E&M: 99703 Subs Hosp L2
[2022-12-22 09:38] VITALS: BP 142/104; PULSE 110; RESP 14; TEMP 36.7; O2SAT 97
[2022-12-22] MEDS: Ensure Clear 120 ML Liquid PO (09:41)
[2022-12-22] MEDS: Enoxaparin 40 MG/0.4 ML Syringe SC (09:41)
[2022-12-22] MEDS: Folic Acid 1 MG Tablet 2 MG PO (09:41)
[2022-12-22 09:42] LABS: Rheumatoid Factor < 10.0 IU/mL (<15)
[2022-12-22] MEDS: Cholecalciferol (Vit D3) 125 MCG CAPSULE (5,000 UNITS) PO (09:42)
[2022-12-22] MEDS: Mirtazapine 15 MG Tablet 7.5 MG PO ×2 (09:42→21:45)
[2022-12-22] MEDS: VILAZODONE HYDROCHLORIDE 10 MG TABLET PO (09:42)
[2022-12-22] MEDS: buPROPion (XL) 300 MG TABLET.XL PO (09:42)
[2022-12-22] MEDS: Pantoprazole Sodium 40 MG in 0.9% Normal Saline (100mL MB+) 100 ML 330 MG IV ×2 (09:50→21:31)
[2022-12-22 09:59] LABS: Erythrocyte Sedimentation Rate 49 mm/hr (0-30)
--- NOTE | 2022-12-22 11:10 | CASEMGMT ---
Discharge Planning Updates sent to [facility] via [facility]. Tricia Fagan, Discharge Planning Asst.
--- NOTE | 2022-12-22 12:56 | CHAPLAIN ---
Type of Pastoral Visit ___ Initial Visit ___ Follow-up Visit ___ On-call Visit ___ General Patient Visit ___ Spiritual Assessment ___ Family Conference ___ Bereavement ___ Rapid Response ___ Code Blue ___ Other (describe below) Pastoral Care Referral From ___ Patient ___ Family ___ Nurse ___ Physician ___ Working Supervisor ___ Crepe Sole Scourer ___ Other (describe below) Sacrament/Intervention ___ Active listening ___ Anointing ___ Orthodoxy ___ Bereavement ___ Communion ___ Mai exploration ___ ___ Life review ___ Prayer ___ Reconciliation ___ Sacrament of Sick ___ Supportive presence ___ Wedding ___ Other (describe below) Pastoral Comments
[2022-12-22] MEDS: Lidocaine 2% (5ml sdv) 5 ML VIAL.MPF INFILT (13:45)
--- NOTE | 2022-12-22 13:45 | RAD_ITS ---
PROCEDURE: Fluoroscopic guided Lumbar Puncture. DATE: December 22, 2022 CLINICAL INDICATION: Possible multiple sclerosis. PHYSICIAN: Lester Baker M.D. MEDICATIONS: 1% lidocaine administered subcutaneously for local anesthesia. ACCESS SITE: Lower posterior back. NEEDLE: 22-gauge spinal needle. SPECIMEN: Approximately 10 mL clear]CSF fluid. FLUOROSCOPY TIME (if supplied): (0:24) minutes/seconds. 12.59 mGy COMPLICATIONS: None immediate. The risks, benefits, and alternatives to the procedure were explained to the patient. The specific risks of bleeding, infection, and neurovascular injury were detailed and accepted. Witnessed informed consent was obtained. The patient was placed on the fluoroscopic table in the prone position. The level for needle entry was determined and marked. The overlying skin was cleaned and prepped in the usual sterile fashion. 2% lidocaine was administered subcutaneously for local anesthesia. Under fluoroscopic guidance a 22-gauge spinal needle was advanced. The thecal sac was entered at the L3- L4 vertebral level. The inner stylet was removed. There was spontaneous flow of clear CSF fluid. The patient was placed in a reversed Trendelenburg position. Approximately 10 mL of cerebrospinal fluid was collected using gravity. The specimen was collected and submitted to the laboratory for further evaluation. The needle was withdrawn,. Hemostasis was achieved and a sterile dressing placed. The patient tolerated the procedure well without any immediate complications. The patient was placed supine with head elevated and returned to the floor in stable condition. RAD/Dx Lumbar Puncture w/IMG Guide IMPRESSION: Successful fluoroscopic-guided lumbar puncture. Electronically Signed: Lester Baker MD at 14:35 EDT ,
[2022-12-22 14:27] LABS: Cytology, Body Fluid / CSF SEE PATHOLOGY REPORT
[2022-12-22 14:38] VITALS: BP 138/90; PULSE 90; RESP 16; TEMP 36.8; O2SAT 97
[2022-12-22 14:59] LABS: Appearance CSF (character) CLEAR (Clear); Auto B Fluid Analyzer BKGD Ct COUNTS W/IN LIMITS (W/IN LIMITS); CSF Color COLORLESS (Colorless); Tested Tube # 3
[2022-12-22 15:01] LABS: RBC Count, Spinal Fluid 2 /mm-3 (None seen); White Count, CSF 0 /mm-3 (0 - 5)
[2022-12-22 15:25] LABS: Lymphocytes,CSF 80 % (40 - 80); Monocytes,CSF 20 % (15 - 45)
[2022-12-22 15:26] LABS: Body Fluid QC Type(s) BF1Q
[2022-12-22 16:53] LABS: Glucose, Body Fluid 84 mg/dL (40-70); Protein, Body Fluid 0.1 g/dL (Not Establ.)
[2022-12-22 20:30] VITALS: BP 150/102; PULSE 109; RESP 18; TEMP 36.6; O2SAT 97
[2022-12-22 20:31] VITALS: PULSE 109
[2022-12-22 21:29] VITALS: BP 142/93; PULSE 110; RESP 16; TEMP 36.6; O2SAT 98
[2022-12-23] MEDS: 0.9% Normal Saline (1000mL) 1,000 ML 75 ML IV ×2 (01:08→17:51)
[2022-12-23 03:46] VITALS: BP 157/110; PULSE 113; RESP 16; TEMP 36.3; O2SAT 99
[2022-12-23 03:54] VITALS: PULSE 113; RESP 16; O2SAT 99
[2022-12-23] MEDS: Metoclopramide 5 MG TABLET PO ×3 (05:58→16:37)
[2022-12-23 07:08] LABS: Absolute Lymphocyte Count 2.39 X10^3/uL (0.83-4.51); Absolute Neutrophil Count 7.8 X10^3/uL (2.0-7.7); Basophil# 0.07 X10^3/uL; Basophil% 0.6 % (0-1); Eosinophil# 0.14 X10^3/uL; Eosinophils% 1.3 % (0-5); Hematocrit 36.6 % (37-47); Hemoglobin 12.2 g/dL (12.0-15.0); Lymphocyte # 2.39 X10^3/ul (0.83-4.51); Lymphocyte % 21.4 % (19-41); Mean Corp Hgb Conc 33.3 g/dL (32-36); Mean Corpuscular Volume 92.9 fL (81-99); Monocyte# 0.68 X10^3/uL; Monocyte% 6.1 % (0-10); NRBC Flagged by Analyzer 0 % (0-5); Neutrophil # 7.76 X10^3/uL (2.7-7.7); Neutrophil % 69.6 % (47-70); Platelet Count 331 K/mm3 (150-450); RBC Distribution Width CV 14.6 % (11.6-14.6); RBC Distribution Width SD 49.7 fl (35.1-43.9); Red Blood Count 3.94 M/mm3 (4.2-5.4); White Blood Count 11.2 K/mm3 (4.4-11.0)
[2022-12-23 07:41] LABS: ALB/GLOB Ratio 0.7 RATIO (0.9-2.4); AST(SGOT) 55 U/L (15-37); Alanine Aminotransfer ALT/SGPT 161 U/L (13-56); Albumin, Serum 2.8 g/dL (3.2-5.0); Alkaline Phosphatase 140 U/L (45-117); Anion Gap 11 (5-15); BUN 11 mg/dL (7-18); BUN/Creat Ratio 22.2 RATIO (10-20); Chloride 105 mmol/L (98-107); EST Glomerular Filtration Rate 142 mL/min (>60); Est Glom Filt Rate - Afr Amer 171 mL/min (>60); Estimated Creatinine Clearance 135.26 ml/min; Glucose 131 mg/dL (74-106); Potassium 3.1 mmol/L (3.5-5.1); Protein, Total 6.8 g/dL (6.4-8.2); Sodium Level 136 mmol/L (136-145)
[2022-12-23 09:09] LABS: Lyme Scn Total Ab w/Rflx Negative (Negative)
[2022-12-23] MEDS: Folic Acid 1 MG Tablet 2 MG PO (09:32)
[2022-12-23] MEDS: Mirtazapine 15 MG Tablet 7.5 MG PO ×2 (09:32→21:31)
[2022-12-23] MEDS: VILAZODONE HYDROCHLORIDE 10 MG TABLET PO (09:33)
[2022-12-23] MEDS: buPROPion (XL) 300 MG TABLET.XL PO (09:33)
[2022-12-23] MEDS: Enoxaparin 40 MG/0.4 ML Syringe SC (09:33)
[2022-12-23] MEDS: Cholecalciferol (Vit D3) 125 MCG CAPSULE (5,000 UNITS) PO (09:33)
[2022-12-23] MEDS: Pantoprazole Sodium 40 MG in 0.9% Normal Saline (100mL MB+) 100 ML 330 MG IV ×2 (09:39→21:38)
[2022-12-23 09:49] VITALS: BP 149/102; PULSE 118; RESP 18; TEMP 36.8; O2SAT 98
--- NOTE | 2022-12-23 12:03 | CHAPLAIN ---
Type of Pastoral Visit _x__ Initial Visit ___ Follow-up Visit ___ On-call Visit ___ General Patient Visit ___ Spiritual Assessment ___ Family Conference ___ Bereavement ___ Rapid Response ___ Code Blue ___ Other (describe below) Pastoral Care Referral From _x__ Patient ___ Family _x__ Nurse ___ Physician ___ Physical Sciences Professor ___ Tray Packer ___ Other (describe below) Sacrament/Intervention _x__ Active listening ___ Anointing ___ Methodist ___ Bereavement ___ Communion ___ Ami exploration ___ ___ Life review _x__ Prayer ___ Reconciliation ___ Sacrament of Sick _x__ Supportive presence ___ Wedding ___ Other (describe below) Pastoral Comments patient is willing to answer questions but is fairly guarded about details of life; pt admits that she has had struggles and that she is weary; pt admits to times of depression due to the same; exploration of things that do bring comfort and hope to patient; pt does have a supportive SO and a daughter that is helping at this time; pt has pets that she enjoys; hope is emphasized in consideration of better days ahead; prayer is accepted by pt as well
[2022-12-23 15:18] LABS: Pathologist Review Reviewed
[2022-12-23 15:45] VITALS: BP 158/104; PULSE 95; RESP 16; TEMP 36.3; O2SAT 99
[2022-12-23] MEDS: Thiamine Hydrochloride 500 MG in 0.9% Normal Saline (50mL Bag) 50 ML 200 MG IV (16:38)
--- NOTE | 2022-12-23 18:02 | PCM.DC.SUM ---
Providers Date of Admission: 12/16/22 Date of Discharge: 12/23/22 Primary Care Physician: Dr. Rissa Brasher, Consultations 12/15/22 21:01 Consult: General Surgery Routine Consulting Provider: Erasmo Avitia Reason for Consult: Intractable nausea and Nausea and vomiting EMERGENT Consult: No Notified: Yes Date Notified: 12/15/22 Time Notified: 19:56 Method of Notification: ED Physician Initiated 12/16/22 10:54 Consult: Gastroenterology Routine Consulting Provider: [facility] Reason for Consult: intractable n/v EMERGENT Consult: No Notified: Yes Date Notified: 12/16/22 Time Notified: 10:55 Method of Notification: Text Reason For Visit: INTRACTABLE NAUSEA & VOMITING Diagnosis Discharge Diagnosis (1) Intractable nausea and vomiting: Status: Acute Code(s): R11.2 - Nausea with vomiting, unspecified (2) Abnormal liver function tests: Status: Acute Code(s): R79.89 - Other specified abnormal findings of blood chemistry Plan 1. Intractable nausea and vomiting-secondary to acute gastritis and gastroparesis #2 paresthesias-etiology unclear #3 chronic depression #4 severe protein and caloric malnutrition-as evidenced by approximately 22% unintentional weight loss x3 months and p.o. intake meeting less than 50% estimated nutrition needs times past 3 months-dietary adjustments were made by nutritional services during the hospital stay #5 abnormal MRI of the brain indicating possible demyelinating process #6 chronic cholecystitis #7 generalized weakness-etiology unclear Medications at Discharge Home Medications L norgest/E estradiol-E estrad 0.15 mg-30 mcg (84)/10 mcg(7) tabs,3mos (Jaimiess) 1 tab PO Q24H 12/15/22 bupropion HCl 300 mg 24 hr tablet, extended release 300 mg PO DAILY 12/15/22 meclizine 25 mg tablet 25 mg PO TID 12/15/22 metoclopramide HCl 5 mg tablet 5 mg PO BID 12/15/22 pantoprazole 40 mg tablet,delayed release 40 mg PO BID 12/15/22 potassium chloride 20 mEq tablet,extended release(part/cryst) 40 meq PO DAILY 12/15/22 sucralfate 1 gram tablet 1 g PO 4X/DAY 12/15/22 trazodone 50 mg tablet 50 mg PO QHS PRN 12/15/22 vilazodone 10 mg tablet 10 mg PO DAILY 12/15/22 Hospital Course Operations None Procedures - (Lumbar puncture) Summary of Care Provided Minutes Spent on Discharge: 31 Hospital Course: This 47-year-old white female was seen in the emergency room at [facility] with complaints of persistent nausea and vomiting and generalized weakness. She had been recently admitted to [facility] in [facility] from December 07 through for dizziness, syncope, nausea and vomiting. At that time patient had a right upper quadrant ultrasound and HIDA scan and a CT of her abdomen all of which indicated probable chronic cholecystitis. Patient's medical status improved with Reglan Protonix and Carafate, she did however have an MRI scan done during that hospitalization on 12/11/2022 which showed nonspecific white matter changes of the brain. She was instructed to follow-up with a neurologist when she was discharged from the hospital. Work-up in the emergency room here included a CBC which was abnormal for an elevated white count at 12.4, CMP was remarkable for an AST of 69, ALT of 139, and an alkaline phosphatase of 137. Patient's glucose was 136. Right upper quadrant ultrasound was obtained which revealed multiple gallstones with underlying adenomyomatosis throughout the gallbladder wall, general surgery was contacted and was asked to see the patient in consultation. General surgery did not feel the patient needed an emergent gallbladder removal. Patient was admitted to PCU, she was placed on IV fluids and seen in consultation by gastroenterology and general surgery. General surgery did not feel that the patient had acute cholecystitis, gastroenterology performed an EGD on the patient which showed evidence of gastritis and an erythematous duodenum. Patient complained of generalized weakness and paresthesias from the neck downward, teleneurology was contacted and advised an LP and a contrasted MRI of the brain. Patient's MRI showed nonspecific white matter changes in the brain which could indicate multiple sclerosis, LP was obtained and the fluid showed no evidence of infection. I received a phone call from teleneurology on 12/23/2022 who advised that the patient be sent out to a tertiary facility for further studies, I talked with the patient and her [id number] concerning this and the patient consented, [facility] consented to take the patient. As a further note, I had a phone conversation with the patient's PCP who confirmed that the patient was instructed to follow-up with a neurologist at her discharge from the hospital, patient told me at the time of discharge from the hospital she could not walk but according to the patient's PCP this was not documented. According to the patient's [id number] however, patient was taken out to her car by wheelchair when she left the hospital in [place]. On 12/23/2022, patient was seen and examined: On examination she appeared in good health and spirits, she does not appear to be in any distress. Vital signs as documented. Skin warm and dry and without overt rashes. Neck without JVD, thyroid appears normal, trachea is midline, neck is supple. Lungs clear, normal air movement was noted. Heart exam notable for regular rhythm, normal sounds and absence of murmurs, rubs or gallops. Abdomen unremarkable and without evidence of organomegaly, masses, or abdominal aortic enlargement, bowel sounds are present in all 4 quadrants, no abdominal tenderness was noted. Extremities nonedematous, no cyanosis was noted, no clubbing was noted. Neuro: Cranial nerves II through XII are grossly intact, no focal motor deficits were noted, sensation to light touch and pinprick is intact, motor exam 5/5 throughout. Psych: Patient is alert and oriented x3, she has a depressive affect. On 12/23/2022, patient was discharged to [facility] in stable condition. Medical Records Data Medical Nutrition Assessment Dietitian: Malnutrition Criteria Met Start: 12/16/22 11:20 Freq: Status: Active Protocol: Document 12/22/22 15:22 LO (Rec: 12/22/22 15:22 LO Desktop) Nutrition Malnutrition Evidence of Malnutrition Exists Yes Malnutrition (severe): Acute Illness/Injury Evidenced By Suboptimal Energy Intake ( Severe),Weight Loss (Severe) Intake Problem Inadequate Oral Intake Etiology related to difficulty chewing Signs/Symptoms as evidenced by edentulous state and unintended weight loss~22% x 3 months Status Active Problem Clinical Problem Acute Disease or Injury Related Malnutrition Etiology Severe protein-calorie malnutrition in the context of acute condition related to inability to take adequate PO, chew difficulty/edentulous state and altered GI function/ intractable nausea and vomiting Signs/Symptoms as evidenced by ~22% unintentional weight loss x 3 months and PO meeting less than 50% estimated nutrition needs x past 3 months following full mouth dental extraction Status Active Problem Recommendation Dietitian Recommendations/Changes Recommend advance diet as tolerated to fat-restricted as needed due to cholecystitis; pt will need soft foods in addition to full liquid diet until dental religion is complete. Additional ONS as pt willing and able to tolerate with advancement of diet. Pt may benefit from TPN if unable to advance diet due to NPO/Clear liquid diet x 7 days Weight / BMI Weight Weight: 107.8 kg Body Mass Index (BMI) 37.2 ABG / Lab / Microbiology Data 12/23/22 06:21 12/23/22 06:21 Laboratory: Laboratory Results - last 24 hr 12/21/22 05:34: Lyme Total Antibody Negative 12/22/22 14:07: CSF Comment Reviewed 12/23/22 06:21: WBC 11.2 H, RBC 3.94 L, Hgb 12.2, Hct 36.6 L, MCV 92.9, MCH 31.0, MCHC 33.3, RDW Std Deviation 49.7 H, RDW Coeff of Odalys 14.6, Plt Count 331, MPV 11.0, Immature Gran % (Auto) 1.000 H, Neut % (Auto) 69.6, Lymph % (Auto) 21.4, [place] % (Auto) 6.1, Eos % (Auto) 1.3, Baso % (Auto) 0.6, Absolute Neuts (auto) 7.8 H, Absolute Lymphs (auto) 2.39, Nucleated RBC % 0, Sodium 136, Potassium 3.1 L, Chloride 105, Carbon Dioxide 20.0 L, Anion Gap 11, BUN 11, Creatinine 0.50 L, Estim Creat Clear Calc 135.26, Est GFR (MDRD) Af Amer 171, Est GFR (MDRD) Non-Af 142, BUN/Creatinine Ratio 22.2 H, Glucose 131 H, Calcium 9.0, Total Bilirubin 0.80, AST 55 H, ALT 161 H, Alkaline Phosphatase 140 H, Total Protein 6.8, Albumin 2.8 L, Globulin 4.0, Albumin/Globulin Ratio 0.7 L Meaningful Use Info Meaningful Use Diagnoses (Choose all that apply): None applicable Discharge Plan Admission Admit Date/Time: 12/16/22 14:47 Attending Provider: Talon Bueno Primary Care Provider: Rissa Brasher Consulting Providers: Erasmo Avitia; Francisco Javier Peters; Pau Kumari; Dawson Mallory Instructions Patient Instructions: HARSHIL RN Lumbar Puncture Having Discharge Orders/Prescriptions Prescriptions: No Action vilazodone 10 mg tablet 10 mg PO DAILY L norgest/e.estradiol-e.estrad [Jaimiess] 0.15 mg-30 mcg (84)/10 mcg (7) tablets,dose pack,3 month 1 tab PO Q24H trazodone 50 mg tablet 50 mg PO QHS PRN bupropion HCl 300 mg tablet extended release 24 hr 300 mg PO DAILY sucralfate 1 gram tablet 1 g PO 4X/DAY potassium chloride 20 mEq tablet,ER particles/crystals 40 meq PO DAILY pantoprazole 40 mg tablet,delayed release (DR/EC) 40 mg PO BID metoclopramide HCl 5 mg tablet 5 mg PO BID meclizine 25 mg tablet 25 mg PO TID Referrals / Follow Up: Rissa Brasher DO [Primary Care Provider] - Disposition Discharge Orders: Discharge Patient (Routine); Ordered 12/23/22 Ordered By: Dr. Talon Bueno Charges/Coding Visit Charges Inpatient E&M: 76290 Disch Hosp >30min
[2022-12-23 21:45] VITALS: BP 124/81; PULSE 97; RESP 16; TEMP 36.7; O2SAT 98
[2022-12-23 22:00] VITALS: PULSE 97; RESP 16
[2022-12-23] MEDS: NYSTATIN 500,000 UNIT/5 ML UDC 500000 UNIT PO (22:54)
[2022-12-24] MEDS: Acetaminophen 325 MG Tablet 650 MG PO (03:39)
[2022-12-24 04:38] VITALS: BP 142/94; PULSE 94; RESP 16; TEMP 36.7; O2SAT 98
[2022-12-24] MEDS: Metoclopramide 5 MG TABLET PO (05:14)
[2022-12-24 05:59] VITALS: BP 142/94; PULSE 94; RESP 16; TEMP 36.7; O2SAT 98
== END 2022-12-24 06:43 | disposition short-term general hospital (02) | DRG 391 ==
LOC: ED 19:43 → PCU 20:01
PROVIDERS: Internal Medicine; Internal Medicine Gastroenterology; Admitting Provider Hospitalist; Emergency Provider Emergency Medicine; PCP Internal Medicine; Visit Provider Internal Medicine
PROC: 0DJ08ZZ Inspection of Upper Intestinal Tract, Via Natural or Artificial Opening Endoscopic (ICD-10-PCS; CPT 43235; principal; 2022-12-18 11:25)
DX: K29.00 Acute gastritis without bleeding (principal); E43 Unspecified severe protein-calorie malnutrition; Q04.8 Other specified congenital malformations of brain; K81.1 Chronic cholecystitis; G35 Multiple sclerosis; F32.A Depression, unspecified; K31.84 Gastroparesis; E87.6 Hypokalemia; F41.9 Anxiety disorder, unspecified; H81.4 Vertigo of central origin; Z68.37 Body mass index [BMI] 37.0-37.9, adult; R63.4 Abnormal weight loss; E66.9 Obesity, unspecified
CPT/HCPCS: 36415; 62328; 70553; 72156; 74018; 74181; 76705; 78264; 80053; 80074; 81001; 82306; 82607; 82746; 82784; 82785; 82945; 83090; 83516; 83735; 83921; 84100; 84134; 84157; 84165; 84703; 85025; 85652; 86140; 86225; 86235; 86255; 86256; 86334; 86431; 86618; 86645; 86663; 86665; 86703; 86780; 87496; 88108; 88305; 88313; 88342; 89050; 89051; 93005; 97110; 97162; 97166; 97530; 97535; 97802; 97803; 99285; A9541; A9575; J7030; J7040; A4216; J2405; J3490